=== PATIENT | male | born 1955 | race Caucasian/White ===

== ENCOUNTER → 2023-10-17 09:48 | Outpatient (REF) | payer MEDICARE, OTHER, SELFPAY | LOC: RCS 09:48 | PROVIDERS: ATTENDING PHYSICIAN Nurse Practitioner Primary Care | DX: R06.09 Other forms of dyspnea (principal); I25.10 Atherosclerotic heart disease of native coronary artery without angina pectoris; J44.9 Chronic obstructive pulmonary disease, unspecified; E11.42 Type 2 diabetes mellitus with diabetic polyneuropathy; I11.9 Hypertensive heart disease without heart failure; R07.9 Chest pain, unspecified | CPT/HCPCS: 93017; 93005; 93350; Q9957 ==

== ENCOUNTER → 2023-11-06 15:54 | Outpatient (REF) | payer MEDICARE, OTHER, SELFPAY | LOC: HWRCS 15:54 | PROVIDERS: ATTENDING PHYSICIAN Nurse Practitioner Primary Care | DX: R06.09 Other forms of dyspnea (principal); J44.9 Chronic obstructive pulmonary disease, unspecified; I11.9 Hypertensive heart disease without heart failure | CPT/HCPCS: 93306 ==

== ENCOUNTER → 2024-02-18 16:28 | Outpatient (REF) | payer MEDICARE, OTHER, SELFPAY | LOC: RAD 16:28 | PROVIDERS: ATTENDING PHYSICIAN Nurse Practitioner Family; FAMILY PHYSICIAN Internal Medicine Geriatric Medicine | DX: J44.1 Chronic obstructive pulmonary disease with (acute) exacerbation (principal) | CPT/HCPCS: 71046 ==

== ENCOUNTER 2024-03-07 17:12 | Inpatient (IN) | payer MEDICARE, OTHER, SELFPAY ==
[2024-03-07] VITALS (9 sets, daily range): BP systolic 113–157; BP diastolic 58–85; BMI 26.0; BMI 24.8
[2024-03-07 13:42] LABS: % Basophils 0.3 % (0-2); % Eosinophils 0.2 % (0-6); % Immature Granulocytes 0.5 % (0-0.5); % Lymphocytes 11.2 % (20.5-51.1); % Monocytes 10.6 % (1.7-9.3); % Neutrophils 77.2 % (42.2-75.2); Absolute Immature Granulocytes 0.1 10^3/uL (0-0.05); Absolute Lymphocytes 1.5 10^3/uL (1.2-3.4); Absolute Monocytes 1.4 10^3/uL (0.1-0.6); Hematocrit 41.2 % (39.0-52.0); Hemoglobin 14.2 g/dL (13.0-18.0); Mean Corp Hgb Conc. 34.5 g/dL (33.0-37.0); Mean Corpuscular Hgb 31.2 pg (27.0-31.0); Mean Corpuscular Volume 90.5 fL (80.0-94.0); Mean Platelet Volume 8.6 fL (7.4-10.4); Nucleated Red Blood Cells % 0 % (-); Platelet Count 228 10^3/uL (130-400); Red Blood Cell Count 4.55 10^6/uL (4.70-6.10); Red Cell Dist. Width 12.9 % (11.5-14.5)
[2024-03-07 13:55] LABS: ALT (SGPT) 15 U/L (0-50); AST (SGOT) 28 U/L (17-59); Albumin 4.4 g/dl (3.5-5.0); Alkaline Phosphatase 65 U/L (38-126); Blood Urea Nitrogen 13 mg/dl (9-20); Calcium 9.1 mg/dl (8.4-10.2); Carbon Dioxide 24 mmol/L (22-30); Chloride 91 mmol/L (98-107); Estimated Creatinine Clearance 58 ml/min; Glucose 120 mg/dl (70-99); Potassium 4.5 mmol/L (3.5-5.1); Sodium 127 mmol/L (135-145); Total Bilirubin 0.8 mg/dl (0.2-1.3); Total Protein 7.3 g/dl (6.3-8.2); eGFR 59.84
[2024-03-07 13:59] LABS: COVID-19 Antigen Negative (Negative)
[2024-03-07 14:04] LABS: NT-proBNP 254 pg/ml
[2024-03-07] MEDS: ATROVENT NEBULES 0.5 MG INH ×2 (14:47)
[2024-03-07] MEDS: DECADRON 10 MG IV (14:47)
[2024-03-07] MEDS: VENTOLIN NEBULES 7.5 MG INH (14:47)
--- NOTE | 2024-03-07 15:00 | EDRN ---
the pt pressed the call sharp and stated to this RN that he felt short of breath, Sp02 was 94%, this RN notified the provider and placed the pt on 2L NC, Sp02 came up to 98%, will continue to monitor the pt closely
--- NOTE | 2024-03-07 16:00 | ED.GENMED ---
History of Present Illness
General
Chief Complaint: Breathing Problem
Source: patient and spouse
Time Seen by Provider: 03/07/24 13:42
History of Present Illness
History of Present Illness:
68-year-old male longtime smoker who presents with shortness of breath. He recently had diagnosed with COVID and pneumonia a couple weeks ago. He presents with persistent and progressive dyspnea. No further fevers. Has been trying to cough
sputum up. No hemoptysis. Does continue to smoke
Past History
Past History
ED Past Medical History: COPD, GERD, NIDDM and Other (Hep C)
ED Past Surgical History: None
Social History
Tobacco: Smoker
Alcohol: Occasional
Personal:
Living: with family
Employment: Employed
Family History
Family History: Negative Diabetes, Hypertension, Early CAD, Asthma or Cancer
Phy Exam
Physical Exam
Physical Exam:
CONSTITUTIONAL Patient alert and oriented to person, place and time. Well-appearing. Vital signs reviewed.
HEAD atraumatic, normocephalic.
EYES eyelids normal to inspection, Pupils equally round and reactive to light, Extraocular muscles intact, Conjunctiva normal, Sclera normal.
NECK normal range of motion, Trachea midline, no jugular venous distention.
RESPIRATORY CHEST No respiratory distress noted, Chest expansion equal, wheezing bilaterally .
CARDIOVASCULAR regular and tachycardic.
ABDOMEN abdomen nontender, Bowel sounds normal. No distention.
BACK normal inspection, no obvious deformities
UPPER EXTREMITY range of motion normal, Motor strength normal, no cyanosis, no edema.
LOWER EXTREMITY range of motion normal, Motor strength normal, no cyanosis, no edema.
NEURO Speech normal, No focal motor deficits, John coma scale 15, Memory normal, Cranial Nerves intact to screening exam.
SKIN skin warm, dry, and normal in color.
PSYCHIATRIC patient oriented to person place and time, Normal affect.
Scores
Heart Failure Risk
Heart Failure Risk Score: Not Applicable
Course
Orders/Labs/Results
Orders:
Orders
03/07/24 Breakfast
1800 calorie (15 carb) Diabetic
At Your Request: Full Participation
Does patient need a safe tray?: No
03/07/24 13:22
CXR2 [CR Chest - 2 Views ] Urgent
Comment:
Reason For Exam: shortness of breath
03/07/24 13:34
COVID-19 Antigen Urgent
Source: Nasal Swab
Complete Blood Count/With Diff Urgent
Comprehensive Metabolic Panel Urgent
NT-proBNP Urgent
Serum Osmolality Urgent
Comment: SERUM OSMOLALITY ADDED ON BY FLOOR 4:30PM 03-07-24
Influenza A+B Rapid Molecular Urgent
NASREEN Source: Nasal Swab
Specimen Description:
03/07/24 14:06
Albuterol Sulfate [Ventolin Nebules] 7.5 mg INH R NOW STA
Dexamethasone Sod Phosphate [Decadron] 10 mg IV NOW STA
Ipratropium Nebs [Atrovent Nebules] 0.5 mg INH R NOW STA
03/07/24 14:07
Ipratropium Nebs [Atrovent Nebules] 0.5 mg INH R NOW STA
03/07/24 16:20
Acetaminophen [Tylenol] 1,000 mg PO NOW STA
03/07/24 16:26
Urinalysis Reflex To Culture Routine
03/07/24 16:27
Add On- LAB Routine
Tests Added?: serum osmolality
Urine Creatinine Routine
Urine Osmolality Random [Osmolality, Random Urine] Routine
Urine Potassium Routine
Urine Sodium Routine
03/07/24 16:28
Admit/Transfer Patient As Directed
Co-Sign Provider:
Level of Care: Inpatient admission
Assign to:: Telemetry
Physician / Group: sheu
Diagnosis: COPD exacerbation
Reason for Telemetry: Arrhythmia
Date to Stop Telemetry: 03/10/24
Time to Stop Telemetry: 11:00
Reason for Hospitalization: COPD exacerbation
Expected length of stay greater than two midnights?: Yes
ELOS- Estimated Length of Stay in days: 3
I certify the patient meets the requirements for IP care: Yes
03/07/24 16:29
Code Status As Directed
Resuscitation Status: Full Code
03/07/24 16:34
EKG [Electrocardiogram (*1)] Stat
Reason for Study: Tachycardia
03/07/24 16:47
CT Chest Pe Study Urgent
Comment:
Reason For Exam: sob
Legionella Urinary Antigen Routine
NASREEN Source: Urine
Specimen Description:
Sputum Culture [Respiratory Culture/Gram Stain] Routine
NASREEN Source: Sputum
Specimen Description:
Strep pneumoniae Antigen Routine
NASREEN Source: Urine
Specimen Description:
0.9% Sodium Chloride 1000 ml [Nss] 1,000 ml IV 60 mls/hr
03/07/24 16:53
CefTRIAXone [Rocephin] 1,000 mg IV NOW STA
03/07/24 16:54
Doxycycline Hyclate [Vibramycin] 200 mg 0.9% Sodium Chloride 250 ml [Nss] 250 ml IV NOW
03/07/24 17:09
Blood Culture Q30M
NASREEN Source: Blood/Venous
Specimen Description:
03/07/24 17:30
Blood Culture Q30M
NASREEN Source: Blood/Venous
Specimen Description:
03/07/24 19:36
Dexamethasone Sod Phosphate [Decadron] 4 mg IV Q8H
Dextrose 50%-Water [Dextrose 50% Syringe] 12.5 grams IV [id number] PRN
Enoxaparin Sodium [Lovenox] 40 mg SC QPM
Glucagon [GlucaGen] 1 mg IM PRN PRN
Insulin Aspart Corrective Low [Novolog Flexpen-Low Resistance] See Protocol SC AC
Levalbuterol [Xopenex 0.63 mg Inhalant Solution] 0.63 mg INH R Q6HPRN PRN
Lidocaine [Lidocaine 4% Patch] 1 patch TOPICAL DAILY
03/07/24 19:36
Activity As Directed
Activity Level: As Tolerated
Bedside Glucose Monitoring As Directed
Frequency: AC&HS
Additional Instructions:: Change to q6h if pt on TPN, tube feeding or not eating
Intake/ Output As Directed
Frequency: Per unit guidelines
Vital Signs As Directed
Frequency: Per unit guidelines
Xopenex Reason for Use As Directed
Reason for ordering Xopenex instead of Albuterol: tachycardia
Xopenex Reason for Use As Directed
Reason for ordering Xopenex instead of Albuterol: tachycardia
Copd Education [RESP] Routine
O2 Therapy [RESP] Routine
Titrate/Wean O2 to maintain O2 sat greater than (%): 92
Special Instructions: adjust, if necessary, to avoid hyperoxia in CO2 retainers.
Use High Flow O2 if necessary
DX Deep Vein Thrombosis Video Routine
03/07/24 20:00
Ipratropium Nebs [Atrovent Nebules] 0.5 mg INH R QID
Levalbuterol [Xopenex 0.63 mg Inhalant Solution] 0.63 mg INH R TID
03/07/24 22:00
Acetaminophen [Tylenol] 650 mg PO Q4HPRN PRN
Melatonin 5 mg PO HS
03/08/24 06:00
Basic Metabolic Panel IN AM
Complete Blood Count/With Diff IN AM
Glycohemoglobin (HgbA1c) IN AM
03/08/24 08:00
Aspirin Low Dose EC [Aspir Low (Enteric Coated)] 81 mg PO DAILY
Atorvastatin [Lipitor] 20 mg PO DAILY
Cetirizine HCl [Zyrtec] 10 mg PO DAILY
Losartan [Cozaar] 100 mg PO DAILY
Montelukast Sodium [Singulair] 10 mg PO DAILY
Omeprazole Suspension [Prilosec Baby Oral Suspension] 20 mg PO DAILY
03/08/24 18:00
CefTRIAXone [Rocephin] 1,000 mg IV Q24H
03/09/24 06:00
Basic Metabolic Panel IN AM
Complete Blood Count/With Diff IN AM
03/10/24 06:00
Basic Metabolic Panel IN AM
Complete Blood Count/With Diff IN AM
03/10/24 11:00
DC Protocol for Telemetry ONCE
03/11/24 06:00
Basic Metabolic Panel IN AM
Complete Blood Count/With Diff IN AM
03/12/24 06:00
Basic Metabolic Panel IN AM
Complete Blood Count/With Diff IN AM
Abnormal Lab Results
03/07/24
13:34
WBC 13.0 H 10^3/uL
(4.8-10.8)
RBC 4.55 L 10^6/uL
(4.70-6.10)
MCH 31.2 H pg
(27.0-31.0)
Abs Immat Gran (auto) 0.1 H 10^3/uL
(0-0.05)
Absolute Neuts (auto) 10.0 H 10^3/uL
(1.4-6.5)
Absolute Monos (auto) 1.4 H 10^3/uL
(0.1-0.6)
Neutrophils % 77.2 H %
(42.2-75.2)
Lymphocytes % 11.2 L %
(20.5-51.1)
Monocytes % 10.6 H %
(1.7-9.3)
Sodium 127 L mmol/L
(135-145)
Chloride 91 L mmol/L
(98-107)
Glucose 120 H mg/dl
(70-99)
Serum Osmolality 263 L mOsm/kg
(275-300)
03/07/24 13:34
03/07/24 13:34
Vital Signs
Initial and Last Documented VS:
Initial Vital Signs
Temp Pulse Resp BP Pulse Ox
98.8 F 121 30 127/79 92
03/07/24 13:05 03/07/24 13:05 03/07/24 13:05 03/07/24 13:05 03/07/24 13:05
Last Documented Vital Signs
Temp Pulse Resp BP Pulse Ox
98.8 F 117 28 153/74 91
03/07/24 13:05 03/07/24 19:30 03/07/24 19:30 03/07/24 17:53 03/07/24 18:30
MDM/Problems Addressed
MDM/Problems Addressed:
Acute exacerbation of COPD, hypoxia
*Radiology
Radiology exam reviewed: preliminary read by ED provider (no infiltrates)
*Pulse Oximetry
Patient hypoxic: yes
*[facility] Interpretation
Rate: tachycardiac
Interpretation: abnormal
Rhythm: sinus
*Critical Care Note
Total Time (30-74mins, 75-104mins- exclusive of procedures): 40 minutes
Data Reviewed
Review of Other/Old Records Reveals: Testing (Echocardiogram reviewed from October)
Source: patient and spouse
Prescriptions/Medications Considered But Not Given:
Considered antibiotics but afebrile, no pneumonia on x-ray
Patient Management
Discussion with other providers: Hospitalist
Escalation/DeEscalation of care consider admission/obs:
68-year-old male with COPD exacerbation. Steroids given and improved after hour-long neb but still hypoxic. Admit
ED Attending Note
-
Portions of this chart may have been created with voice recognition software.� Occasional wrong word or��sound alike� substitutions may have occurred due to the inherent limitations of voice recognition software.
Discharge Plan
Departure
Patient Disposition: Admit
Date of Disposition: 03/07/24
Time of Disposition: 16:00
Admit to: Telemetry
Presentation/result/management discussed w/ accepting MD/DO: Hospitalist
Discharge Problem:
Acute exacerbation of chronic obstructive pulmonary disease
Interventions
Interventions:
*Risk Screen - Suicide Last Done: 03/07/24 13:05
*General Assessment Last Done: 03/07/24 13:05
*Neglect/Abuse Screening Last Done: 03/07/24 13:05
ED- Fall Risk Assessment Last Done: 03/07/24 13:22
*ED COVID-19 Vaccine History Last Done: 03/07/24 13:22
*Nursing Disposition Last Done: 03/07/24 17:48
ED- Cardiac Assessment Last Done: 03/07/24 13:22
ED- Pulmonary Assessment Last Done: 03/07/24 13:22
Discharge Date and Time
Discharge Date/Time: 03/07/24 19:47
--- NOTE | 2024-03-07 16:06 | HPS.HSE ---
Addendum entered and electronically signed by Jonn Walsh MD 03/07/24 17:45:
I saw and examined the patient.
The PRINTING TECHNICIAN or PA's note was reviewed and I agree with the note.
Comment:
68 male history COPD GERD diabetes type 2 hepatitis C current smoker presents with progressive weakness generalized body aches back pain cough fever for the past few days. Further reports constipation. Denies dysuria abdomen pain palpitations.
Denies chest pain at rest. Reports pleuritic chest pain with cough productive sputum. Ambulatory without assist at baseline, patient has largely been sedentary for the past few days due to symptoms. Required 2 L oxygen supplementation. Tachy
possibly due to albuterol bronchodilator treatments. Blood pressure stable afebrile. Labs were notable for mild leukocytosis and mild hyponatremia. Chest x-ray noted no acute abnormalities. COVID flu negative. Wheezing mild though recently
completed bronchodilator treatments. Admitted for treatment COPD exacerbation versus possible pneumonia
Physical Exam
General: No pallor, cyanosis, or jaundice. Mild to moderate distress due to pain discomfort
HEENT: Throat clear. PERRLA Normocephalic atraumatic
NECK: Supple. No JVD Carotid Bruits
RESPIRATORY: Mild expiratory wheeze. On nasal cannula supplementation 2 L
CVS: S1, S2 normal. RRR. No murmur, rub or gallop.
ABDOMEN: Soft, non-tender. No distension. BS+/normal.
Musculoskeletal/EXTREMITIES: Upper paraspinal tenderness noted no peripheral cyanosis or edema.
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 No focal deficits.
#COPD exacerbation
#Current smoker
#Possible pneumonia
#Diabetes
#Hypertension
#Mild hyponatremia
Steroids and bronchodilator treatments Xopenex avoiding albuterol due to tachycardia
O2 supplementation as necessary
Mucinex Robitussin and Tessalon Perle as needed cough
Follow-up blood sputum cultures
Empiric ceftriaxone doxycycline check EKG if QT within normal limits switch doxycycline to azithromycin
Check strep pneumonia Legionella urinary antigens
Check CT PE study
Glycemic control
Blood pressure control
IV fluid normal saline Gentle hydration
Discussed with patient and his at bedside
I spent a total of 80 minutes with the patient or on the floor. More than 50% of this time involved counseling and coordination of care.
Original Note:
Family Physician
-
Family Physician: Wilian Wiggins
Chief Complaint
-
Cough
Short of breath
Generalized body ache
History of Present Illness
68-year-old with past medical history for COPD, GERD, type 2 diabetes, hepatitis presented to us with 3 days of productive cough with white sputum, sore throat, short of breath which is worse with activity and generalized body ache. Patient had a
fever of 101.9 at home. He is complaining of headache. Feels dizzy when he is up ad luis.. Patient also complained of chest pain with cough. Patient took Delsym and Tylenol and his rescue inhaler with some relief in his symptoms. Patient denied
any abdominal pain, nausea, vomiting, diarrhea. Patient denied dysuria hematuria.
Patient requiring 2 L of oxygen. Patient received nebulizer treatment and Decadron in ER. Admitting for further management
Medical History
Past Medical History
Past Medical History: Reports Other
Additional Past Medical History:
Hypertension
Type 2 diabetes
Hyperlipidemia
Hepatitis C
COPD
GERD
GERD history
Past Surgical History: Reports Other
Additional Past Surgical History:
Lump removed from back
Hernia repair
Right elbow surgery
Microdiscectomy
Tooth extraction
Social History
Tobacco: Smoker (10 to 15 cigarettes daily)
Alcohol: None
Drug: None
Personal:
Living: With Family
Family History
Family History: Not pertinent
Allergies / Home Medications
Allergies reflects when Allergies were last updated in [employer].
Home Medications with original date entered in [employer]
Allergy/Medication List:
Allergies
Allergy/AdvReac Type Severity Reaction Status Date / Time
No Known Allergies Allergy Verified 03/07/24 13:05
Home Medications
omeprazole 20 mg capsule,delayed release 20 mg PO DAILY 02/04/12
fluticasone propionate 50 mcg/actuation nasal spray,suspension 2 spray intranasal DAILY 01/15/18
lisinopril 20 mg tablet 20 mg PO DAILY 01/15/18
montelukast 10 mg tablet 10 mg PO DAILY 01/15/18
sitagliptin phosphate 50 mg-metformin 1,000 mg tablet (Janumet) 1 ea PO BID 01/15/18
tiotropium bromide 2.5 mcg/actuation mist for inhalation (Spiriva Respimat) 2 puff inhalation DAILY 01/15/18
Review of Systems
-
Constitutional: Reports Fatigue
EENT: Reports Sore Throat
Respiratory: Reports No Symptoms, Cough and Trouble Breathing
Cardiac: Reports No Symptoms and Chest Pain
Abdomen/GI: Reports No Symptoms
: Reports No Symptoms
Musculoskeletal: Reports No Symptoms
Skin: Reports No Symptoms
Neurological: Reports No Symptoms
Endocrine: Reports No Symptoms
Hematologic/Lymphatic: Reports No Symptoms
Psych: Reports No Symptoms
Physical Exam
Vital Signs
Vital Signs
Temp Pulse Resp BP Pulse Ox
98.8 F 122 22 127/79 92
03/07/24 13:05 03/07/24 13:30 03/07/24 13:30 03/07/24 13:05 03/07/24 13:30
Physical Exam
General: Well Developed, Well Nourished and No Apparent Distress
HEENT: NormoCephalic, Moist mucous membranes and Atraumatic
Respiratory: Rales
Cardiac: S1/S2 and Regular Rhythm; No Murmur or Rub
GI: Soft, Non Tender, Non Distended and Normal Bowel Sounds; No Organomegaly
Rectal: Deferred by Provider
Musculoskeletal: No Clubbing, No Cyanosis and No Edema
Skin: No Rash
Neuro: AO x 3 and Nonfocal/grossly intact
Psych: Calm
Laboratory Results
-
03/07/24 13:34
03/07/24 13:34
Laboratory Results
Total Bilirubin 0.8 mg/dl (0.2-1.3) 03/07/24 13:34
AST 28 U/L (17-59) 03/07/24 13:34
ALT 15 U/L (0-50) 03/07/24 13:34
Alkaline Phosphatase 65 U/L (38-126) 03/07/24 13:34
Data Reviewed
-
Diagnostic Radiology: Report Reviewed by me
Lab Data: Labs Reviewed by me
Impression/Plan
-
# Acute hypoxic respiratory failure likely from COPD exacerbation
-COVID-negative
-Chest x-ray with no acute cardiopulmonary process
-Negative for influenza AMB
-IV Decadron 4 Mg every 8 hours
-Xopenex and Atrovent
-Singulair continued
-Continue supplemental oxygen to keep sat greater than 92
-Wean as tolerated
-obtain CT PE
# Leukocytosis likely stress reaction
-will obtain blood cutlures, strep pneumoniae, urine legionella,sputum culture
-will add prophylactically ceftriaxone and zithro pending QTC eval
-WBC 13.0, afebrile in Er
-stated fever at home.
-Obtain urinalysis
#tachycardia likely from above and dehydration
-normal saline 60cc/hr
# Acute hyponatremia likely dehydration
-Sodium 127
-Obtain urine lytes
-Normal saline x 1 bag
-Monitor BMP in a.m.
# Essential hypertension
-losartan continued with hold parameters
# GERD
-PPI continued
# Type 2 diabetes
-metformin and repaglinide held
-Sliding scale
-Lantus 10u at hs
-Carb controlled diet
#nicotine dependence
-smokes 10-15 cigarettes daily
-refused nicotine patch
#generalized pain/chronic back pain
-lidocaine and Tylenol prn for pain
# DVT prophylaxis
-Lovenox subcu
#CODE STATUS
-Full code
[2024-03-07 17:33] LABS: Osmolality Serum 263 mOsm/kg (275-300)
[2024-03-07] MEDS: ROCEPHIN 1000 MG IV (17:58)
[2024-03-07] MEDS: TYLENOL 1000 MG PO (17:58)
[2024-03-07] MEDS: XOPENEX 0.63 MG INHALANT SOLUTION 0.630000000000000004 MG INH (20:11)
[2024-03-07] MEDS: NSS 1000 IV (20:32)
[2024-03-07] MEDS: MUCINEX 600 MG PO (20:33)
[2024-03-07] MEDS: LOVENOX 40 MG SC (20:33)
[2024-03-07] MEDS: VIBRAMYCIN 270 MG IV (20:33)
[2024-03-07] MEDS: LIDOCAINE 4% PATCH 1 PATCH TOPICAL (20:34)
[2024-03-07 20:54] LABS: Troponin I < 0.012 ng/ml
[2024-03-07 21:16] LABS: Lactic Acid 0.9 mmol/L (0.7-2.0)
--- NOTE | 2024-03-07 22:00 | TRANSFER ---
Pt admitted from ED to room 415-2. Pt walked from stretcher to bed with no assistance. AAOx3. Pt on 2 liters O2 95%. Pt denies SOB at current time. [place] to unit. Call sharp within reach
[2024-03-07] MEDS: DECADRON 4 MG IV (22:14)
[2024-03-07] MEDS: MELATONIN 5 MG PO (22:14)
[2024-03-07] MEDS: LANTUS 0.100000000000000006 UNITS SC (22:18)
[2024-03-07 22:20] LABS: Glucose - Point of Care 182 mg/dl (70-99)
[2024-03-07] MEDS: NOVOLOG FLEXPEN-LOW RESISTANCE SC (22:25)
[2024-03-07] MEDS: TYLENOL 650 MG PO (23:12)
[2024-03-08 03:00] VITALS: BP 144/86
[2024-03-08] MEDS: VIBRAMYCIN 260 MG IV ×2 (03:36→17:40)
[2024-03-08 04:16] LABS: Urine Albumin 1+ (Neg - Trace); Urine Bilirubin Negative (Negative); Urine Character Clear (Clear); Urine Color Yellow; Urine Glucose Negative (Negative); Urine Ketone Trace (Negative); Urine Leukocyte Negative (Negative); Urine Nitrite Negative (Negative); Urine Occult Blood Trace (Negative); Urine Urobilinogen Negative (Neg - 1+)
[2024-03-08 04:18] LABS: Osmolality Urine 304 mOsm/kg (300-900)
[2024-03-08 04:32] LABS: Urine Red Blood Cell None Seen /HPF (0-2); Urine White Cell 0-2 /HPF (0-5)
[2024-03-08 04:40] LABS: Urine Potassium 33.3 mmol/L (30-90); Urine Sodium 21 mmol/L (30-90)
[2024-03-08] MEDS: DECADRON 4 MG IV ×3 (05:13→21:07)
[2024-03-08 07:00] VITALS: BP 123/73
[2024-03-08 07:03] LABS: Glucose - Point of Care 240 mg/dl (70-99)
--- NOTE | 2024-03-08 07:10 | W.PN.HOSP.TC ---
Today's Communication/Plan
-
cont abx
fluid restrict
cough medications prn
wean O2 supplementation as tolerated
nicotine supplementation
follow cultures
Assessment / Plan
Assessment / Plan
Physical Exam
General: No pallor, cyanosis, or jaundice. No acute distress. Appears comfortable at this time
HEENT: Throat clear. PERRLA Normocephalic atraumatic
NECK: Supple. No JVD Carotid Bruits
RESPIRATORY: Mild expiratory wheeze. On nasal cannula supplementation 2 L
CVS: S1, S2 normal. RRR. No murmur, rub or gallop.
ABDOMEN: Soft, non-tender. No distension. BS+/normal.
Musculoskeletal/EXTREMITIES: Upper paraspinal tenderness noted no peripheral cyanosis or edema.
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 No focal deficits.
68 male history COPD GERD diabetes type 2 hepatitis C current smoker presents with progressive weakness generalized body aches back pain cough fever for the past few days. Further reports constipation. Denies dysuria abdomen pain palpitations.
Denies chest pain at rest. Reports pleuritic chest pain with cough productive sputum. Ambulatory without assist at baseline, patient has largely been sedentary for the past few days due to symptoms. Required 2 L oxygen supplementation. Tachy
possibly due to albuterol bronchodilator treatments. Blood pressure stable afebrile. Labs were notable for mild leukocytosis and mild hyponatremia. Chest x-ray noted no acute abnormalities. COVID flu negative. Wheezing mild though recently
completed bronchodilator treatments. Admitted for treatment COPD exacerbation versus likely pneumonia
#Sepsis Pneumonia (white count elevation fever consolidation noted on CT)
# Acute hypoxic respiratory failure likely from COPD exacerbation
#Cough
-COVID Flu Neg
-Chest x-ray with no acute cardiopulmonary process
-CT chest however appreciated right consolidation vs mass vs adenopathy (recommended outpt follow up with patient's advertising sales agent Dr Cordova for repeat CT vs PET scan). No PE noted.
-IV Decadron 4 Mg every 8 hours
-scheduled Xopenex prn Xopenex and Atrovent (avoiding albuterol d/t tachycardia)
-Singulair continued
-Continue supplemental oxygen to keep sat greater than 92
-Wean as tolerated
-strep pneumoniae, urine legionella neg
-follow blood,sputum cultures
-cont Ceftriaxone, Doxycycline discontinued in favor of Azithromycin (QTc wnl)
-scheduled mucinex, prn robitussin tessalon perle
# Acute hyponatremia 120s
-fluid restriction
# Essential hypertension
-losartan continued with hold parameters
# GERD
-PPI continued
# Type 2 diabetes
-hold metformin and repaglinide
-medium Sliding scale
-Lantus 10u at hs
-Carb controlled diet
#nicotine dependence
-smokes 10-15 cigarettes daily
-nicotine patch
-nicotine lozenge prn
#generalized pain/chronic back pain
-lidocaine and Tylenol prn for pain
# DVT prophylaxis
-Lovenox subcu
#CODE STATUS
-Full code
I spent a total of 58 minutes with the patient or on the floor. More than 50% of this time involved counseling and coordination of care.
Anticipated Discharge: 24 - 48 hours
Subjective/Interval History
-
Date of Service: March 08, 2024
Seen and examined at bedside in no acute distress ambulating without issues. Reports significant improvement in overall symptoms though not resolved. Remains dependent on low dose oxygen supplementation 2L (baseline room air).
Objective Data
-
Labs:
Laboratory Results
03/08/24
06:00
WBC Pending
Hgb Pending
Hct Pending
Plt Count Pending
Sodium Pending
Potassium Pending
Chloride Pending
Carbon Dioxide Pending
BUN Pending
Creatinine Pending
Glucose Pending
Calcium Pending
Vital Signs:
Vital Signs
Temp Pulse Resp BP Pulse Ox
98.5 F 102 20 144/86 95
03/08/24 03:00 03/08/24 03:00 03/08/24 03:00 03/08/24 03:00 03/08/24 03:00
I&O
03/07/24 03/08/24 03/09/24
06:59 06:59 06:59
Intake Total 480 / 480
Output Total 385 / 385
Balance 95 / 95
[2024-03-08] MEDS: XOPENEX 0.63 MG INHALANT SOLUTION 0.630000000000000004 MG INH ×3 (08:02→19:45)
[2024-03-08 08:42] LABS: % Basophils 0.1 % (0-2); % Immature Granulocytes 1.4 % (0-0.5); % Monocytes 3.4 % (1.7-9.3); % Neutrophils 91.1 % (42.2-75.2); Absolute Immature Granulocytes 0.2 10^3/uL (0-0.05); Absolute Lymphocytes 0.4 10^3/uL (1.2-3.4); Absolute Monocytes 0.4 10^3/uL (0.1-0.6); Absolute Neutrophils 9.8 10^3/uL (1.4-6.5); Hematocrit 36.6 % (39.0-52.0); Hemoglobin 12.3 g/dL (13.0-18.0); Mean Corp Hgb Conc. 33.6 g/dL (33.0-37.0); Mean Corpuscular Hgb 30.8 pg (27.0-31.0); Mean Corpuscular Volume 91.7 fL (80.0-94.0); Nucleated Red Blood Cells % 0 % (-); Platelet Count 186 10^3/uL (130-400); Red Blood Cell Count 3.99 10^6/uL (4.70-6.10); Red Cell Dist. Width 12.7 % (11.5-14.5); White Blood Cell Count 10.8 10^3/uL (4.8-10.8)
[2024-03-08] MEDS: ASPIR LOW (ENTERIC COATED) 81 MG PO (08:46)
[2024-03-08] MEDS: LIDOCAINE 4% PATCH TOPICAL (08:46)
[2024-03-08] MEDS: LIPITOR 20 MG PO (08:46)
[2024-03-08] MEDS: PROTONIX 40 MG PO (08:46)
[2024-03-08] MEDS: SINGULAIR 10 MG PO (08:46)
[2024-03-08] MEDS: NOVOLOG FLEXPEN-LOW RESISTANCE 2 UNITS SC ×2 (08:46→17:40)
[2024-03-08] MEDS: MUCINEX 600 MG PO ×2 (08:46→21:07)
[2024-03-08] MEDS: COZAAR 100 MG PO (08:47)
[2024-03-08] MEDS: ZYRTEC 10 MG PO (08:50)
[2024-03-08 09:02] LABS: Blood Urea Nitrogen 14 mg/dl (9-20); Calcium 8.2 mg/dl (8.4-10.2); Carbon Dioxide 23 mmol/L (22-30); Chloride 91 mmol/L (98-107); Estimated Creatinine Clearance 85 ml/min; Glucose 209 mg/dl (70-99); Potassium 4.3 mmol/L (3.5-5.1); Sodium 124 mmol/L (135-145); eGFR > 60.00
[2024-03-08 09:49] LABS: Glycohemoglobin (HgbA1c) 8.4 % (4.0-5.6)
[2024-03-08 11:00] VITALS: BP 127/76
[2024-03-08 11:38] LABS: Glucose - Point of Care 256 mg/dl (70-99)
--- NOTE | 2024-03-08 12:03 | CM ---
room service manager reviewed patient's chart and met with patient and patient lives with spouse in multilevel home, patient is independent with adl's and ambulation, no dme, patient is currently requiring oxygen, patient did not use oxygen at home.
Pharmacy: [facility]
PCP: Dr. Wiggins
Plan; Home when stable.
[2024-03-08] MEDS: NOVOLOG FLEXPEN-LOW RESISTANCE 3 UNITS SC (13:19)
[2024-03-08] MEDS: ZITHROMAX INFUSION 250 IV (13:20)
[2024-03-08] MEDS: NSS 1000 IV (13:21)
[2024-03-08] MEDS: NICODERM TRANSDERMAL 21 MG TRANSDERM (14:43)
[2024-03-08] MEDS: ROBITUSSIN AC 5 ML PO ×2 (14:44→21:34)
[2024-03-08 15:00] VITALS: BP 130/111
[2024-03-08 16:41] LABS: Glucose - Point of Care 200 mg/dl (70-99)
[2024-03-08] MEDS: ROCEPHIN 1000 MG IV (17:40)
[2024-03-08] MEDS: STERILE WATER FOR INJECTION 10 ML IV (17:40)
[2024-03-08] MEDS: LOVENOX 40 MG SC (17:40)
[2024-03-08 19:00] VITALS: BP 126/62
[2024-03-08] MEDS: TESSALON PERLES 200 MG PO (19:05)
[2024-03-08] MEDS: FLUSH (NSS) 1 FLUSH IV (21:08)
[2024-03-08] MEDS: MELATONIN 5 MG PO (21:11)
[2024-03-08] MEDS: TYLENOL 650 MG PO (21:22)
[2024-03-08 21:23] LABS: Glucose - Point of Care 277 mg/dl (70-99)
[2024-03-08] MEDS: LANTUS 0.100000000000000006 UNITS SC (21:34)
[2024-03-08 23:00] VITALS: BP 135/72
[2024-03-09 03:05] VITALS: BP 126/81
[2024-03-09] MEDS: VIBRAMYCIN 260 MG IV ×2 (03:25→16:15)
[2024-03-09] MEDS: ROBITUSSIN AC 5 ML PO ×3 (03:31→20:44)
[2024-03-09] MEDS: ANESTHETIC LOZENGE 1 LOZENGE PO (03:38)
[2024-03-09] MEDS: DECADRON 4 MG IV ×3 (05:44→16:54)
--- NOTE | 2024-03-09 06:31 | W.PN.HOSP.TC ---
Today's Communication/Plan
-
cont abx
fluid restriction relaxed w/ improvement in Na
cough medications scheduled and prn
wean O2 supplementation as tolerated
nicotine supplementation
follow cultures
blood pressure glycemic control
steroids discontinued d/t anxiousness/agitation lungs clear to auscultation, monitor off
Assessment / Plan
Assessment / Plan
Physical Exam
General: No pallor, cyanosis, or jaundice. No acute distress. Appears comfortable at this time
HEENT: Throat clear. PERRLA Normocephalic atraumatic
NECK: Supple. No JVD Carotid Bruits
RESPIRATORY: Clear to auscultation. On nasal cannula supplementation 2 L
CVS: S1, S2 normal. RRR. No murmur, rub or gallop.
ABDOMEN: Soft, non-tender. No distension. BS+/normal.
Musculoskeletal/EXTREMITIES: Upper paraspinal tenderness noted no peripheral cyanosis or edema.
HEALTH AND SAFETY COORDINATOR: AOx3. No focal deficits.
68 male history COPD GERD diabetes type 2 hepatitis C current smoker presents with progressive weakness generalized body aches back pain cough fever for the past few days. Further reports constipation. Denies dysuria abdomen pain palpitations.
Denies chest pain at rest. Reports pleuritic chest pain with cough productive sputum. Ambulatory without assist at baseline, patient has largely been sedentary for the past few days due to symptoms. Required 2 L oxygen supplementation. Tachy
possibly due to albuterol bronchodilator treatments. Blood pressure stable afebrile. Labs were notable for mild leukocytosis and mild hyponatremia. Chest x-ray noted no acute abnormalities. COVID flu negative. Wheezing mild though recently
completed bronchodilator treatments. Admitted for treatment COPD exacerbation versus likely pneumonia
#Sepsis Pneumonia (white count elevation fever consolidation noted on CT)
# Acute hypoxic respiratory failure likely from COPD exacerbation
#Cough
-COVID Flu Neg
-Chest x-ray with no acute cardiopulmonary process
-CT chest however appreciated right consolidation vs mass vs adenopathy (recommended outpt follow up with patient's safety admin assistant Dr Cordova for repeat CT vs PET scan). No PE noted.
-IV Decadron 4 Mg every 8 hours since discontinued d/t anxiousness/agitation, lungs clear to auscultation, monitor off steroids for now
-scheduled Xopenex prn Xopenex and Atrovent (avoiding albuterol d/t tachycardia)
-Singulair continued
-Continue supplemental oxygen to keep sat greater than 92
-Wean as tolerated
-strep pneumoniae, urine legionella neg
-follow blood,sputum cultures
-cont Ceftriaxone, Doxycycline discontinued in favor of Azithromycin (QTc wnl) 3 day course
-scheduled mucinex, prn robitussin tesmeleon perle
Anxiousness/agitated
-possibly d/t steroids since discontinued
-prn ativan PO 0.25 mg
# Acute hyponatremia 120s
-fluid restriction, Na since improved 130s,
-fluid restriction relaxed from 48 oz to 60 oz
# Essential hypertension
-losartan continued with hold parameters
# GERD
-PPI continued
# Type 2 diabetes
-hold metformin and repaglinide
-medium Sliding scale
-Lantus 10u at hs
-Carb controlled diet
#nicotine dependence
-smokes 10-15 cigarettes daily
-nicotine patch
-nicotine lozenge prn
#generalized pain/chronic back pain
-lidocaine and Tylenol prn for pain
# DVT prophylaxis
-Lovenox subcu
#CODE STATUS
-Full code
Discussed with patient and patient's sister Shauna at bedside
I spent a total of 58 minutes with the patient or on the floor. More than 50% of this time involved counseling and coordination of care.
Anticipated Discharge: 24 - 48 hours
Subjective/Interval History
-
Date of Service: March 09, 2024
Patient continues to report excessive coughing. Later in day patient was noted to be more anxious/agitated (notably after second dose of steroids on TID schedule).
Objective Data
-
Labs:
Laboratory Results
03/09/24
06:00
WBC Pending
Hgb Pending
Hct Pending
Plt Count Pending
Sodium Pending
Potassium Pending
Chloride Pending
Carbon Dioxide Pending
BUN Pending
Creatinine Pending
Glucose Pending
Calcium Pending
Vital Signs:
Vital Signs
Temp Pulse Resp BP Pulse Ox
97.7 F 117 22 126/81 96
03/09/24 03:05 03/09/24 03:05 03/09/24 03:05 03/09/24 03:05 03/09/24 03:05
I&O
03/07/24 03/08/24 03/09/24
06:59 06:59 06:59
Intake Total 480 / 480 1740 / 1740
Output Total 385 / 385 1320 / 1320
Balance 95 / 95 420 / 420
[2024-03-09 07:00] VITALS: BP 161/85
[2024-03-09 07:11] LABS: Glucose - Point of Care 163 mg/dl (70-99)
[2024-03-09] MEDS: XOPENEX 0.63 MG INHALANT SOLUTION 0.630000000000000004 MG INH ×3 (07:39→19:51)
[2024-03-09 07:43] LABS: Blood Urea Nitrogen 16 mg/dl (9-20); Calcium 8.7 mg/dl (8.4-10.2); Carbon Dioxide 25 mmol/L (22-30); Chloride 97 mmol/L (98-107); Estimated Creatinine Clearance 85 ml/min; Glucose 167 mg/dl (70-99); Magnesium 1.8 mg/dl (1.6-2.3); Phosphorus 2.4 mg/dl (2.5-4.5); Potassium 4.5 mmol/L (3.5-5.1); Sodium 132 mmol/L (135-145); eGFR > 60.00
[2024-03-09 07:50] LABS: % Basophils 0.1 % (0-2); % Immature Granulocytes 0.6 % (0-0.5); % Lymphocytes 4.5 % (20.5-51.1); % Monocytes 6.3 % (1.7-9.3); % Neutrophils 88.5 % (42.2-75.2); Absolute Immature Granulocytes 0.1 10^3/uL (0-0.05); Absolute Lymphocytes 0.5 10^3/uL (1.2-3.4); Absolute Monocytes 0.7 10^3/uL (0.1-0.6); Absolute Neutrophils 10.2 10^3/uL (1.4-6.5); Hematocrit 35.8 % (39.0-52.0); Hemoglobin 12.3 g/dL (13.0-18.0); Mean Corp Hgb Conc. 34.4 g/dL (33.0-37.0); Mean Corpuscular Hgb 30.8 pg (27.0-31.0); Mean Corpuscular Volume 89.7 fL (80.0-94.0); Nucleated Red Blood Cells % 0 % (-); Platelet Count 241 10^3/uL (130-400); Red Blood Cell Count 3.99 10^6/uL (4.70-6.10); Red Cell Dist. Width 12.8 % (11.5-14.5); White Blood Cell Count 11.5 10^3/uL (4.8-10.8)
[2024-03-09] MEDS: NOVOLOG FLEXPEN-MODERATE RESISTANCE 1 UNITS SC ×2 (08:19→17:09)
[2024-03-09] MEDS: LIDOCAINE 4% PATCH 1 PATCH TOPICAL (08:20)
[2024-03-09] MEDS: ASPIR LOW (ENTERIC COATED) 81 MG PO (08:20)
[2024-03-09] MEDS: PROTONIX 40 MG PO (08:21)
[2024-03-09] MEDS: LIPITOR 20 MG PO (08:21)
[2024-03-09] MEDS: SINGULAIR PO (08:21)
[2024-03-09] MEDS: MUCINEX 600 MG PO (08:21)
[2024-03-09] MEDS: ZYRTEC PO (08:22)
[2024-03-09] MEDS: COZAAR 100 MG PO (08:23)
[2024-03-09] MEDS: TYLENOL 650 MG PO ×2 (08:37→16:15)
[2024-03-09] MEDS: NICODERM TRANSDERMAL 21 MG TRANSDERM (08:44)
[2024-03-09] MEDS: TESSALON PERLES 200 MG PO ×3 (09:03→20:44)
[2024-03-09 11:00] VITALS: BP 133/66
[2024-03-09] MEDS: ZITHROMAX INFUSION 250 IV (11:37)
[2024-03-09 12:08] LABS: Glucose - Point of Care 261 mg/dl (70-99)
[2024-03-09] MEDS: NOVOLOG FLEXPEN-MODERATE RESISTANCE 5 UNITS SC (13:04)
[2024-03-09 15:00] VITALS: BP 162/82
[2024-03-09] MEDS: ATIVAN 0.25 MG PO ×2 (16:54→22:01)
[2024-03-09] MEDS: ROCEPHIN 1000 MG IV (16:54)
[2024-03-09] MEDS: STERILE WATER FOR INJECTION 10 ML IV (16:54)
[2024-03-09] MEDS: LOVENOX 40 MG SC (16:55)
[2024-03-09 16:56] LABS: Glucose - Point of Care 169 mg/dl (70-99)
[2024-03-09 19:48] VITALS: BP 135/77
[2024-03-09] MEDS: MUCINEX PO ×2 (20:43→20:52)
[2024-03-09 21:29] LABS: Glucose - Point of Care 207 mg/dl (70-99)
[2024-03-09] MEDS: LANTUS 0.100000000000000006 UNITS SC (21:58)
[2024-03-09] MEDS: MELATONIN 5 MG PO (21:59)
[2024-03-09 23:22] VITALS: BP 145/77
[2024-03-10 03:28] VITALS: BP 148/86
[2024-03-10] MEDS: TYLENOL 650 MG PO ×3 (03:28→21:57)
[2024-03-10 07:15] LABS: Glucose - Point of Care 104 mg/dl (70-99)
[2024-03-10 07:31] LABS: % Basophils 0.1 % (0-2); % Immature Granulocytes 0.7 % (0-0.5); % Lymphocytes 10.8 % (20.5-51.1); % Monocytes 9.1 % (1.7-9.3); % Neutrophils 79.3 % (42.2-75.2); Absolute Immature Granulocytes 0.1 10^3/uL (0-0.05); Absolute Lymphocytes 1.1 10^3/uL (1.2-3.4); Absolute Monocytes 0.9 10^3/uL (0.1-0.6); Hematocrit 36.6 % (39.0-52.0); Hemoglobin 12.6 g/dL (13.0-18.0); Mean Corp Hgb Conc. 34.4 g/dL (33.0-37.0); Mean Corpuscular Hgb 30.8 pg (27.0-31.0); Mean Corpuscular Volume 89.5 fL (80.0-94.0); Mean Platelet Volume 8.7 fL (7.4-10.4); Nucleated Red Blood Cells % 0 % (-); Platelet Count 247 10^3/uL (130-400); Red Blood Cell Count 4.09 10^6/uL (4.70-6.10)
[2024-03-10] MEDS: NOVOLOG FLEXPEN-MODERATE RESISTANCE SC ×3 (07:33→16:13)
[2024-03-10] MEDS: XOPENEX 0.63 MG INHALANT SOLUTION 0.630000000000000004 MG INH ×3 (07:41→19:20)
[2024-03-10 08:07] VITALS: BP 149/87
[2024-03-10 08:17] LABS: Blood Urea Nitrogen 14 mg/dl (9-20); Calcium 8.4 mg/dl (8.4-10.2); Carbon Dioxide 29 mmol/L (22-30); Chloride 92 mmol/L (98-107); Estimated Creatinine Clearance 85 ml/min; Glucose 95 mg/dl (70-99); Magnesium 1.8 mg/dl (1.6-2.3); Phosphorus 3.1 mg/dl (2.5-4.5); Potassium 4.1 mmol/L (3.5-5.1); Sodium 129 mmol/L (135-145); eGFR > 60.00
[2024-03-10] MEDS: SINGULAIR 10 MG PO (08:20)
[2024-03-10] MEDS: LIPITOR 20 MG PO (08:21)
[2024-03-10] MEDS: MUCINEX 600 MG PO (08:21)
[2024-03-10] MEDS: COZAAR 100 MG PO (08:21)
[2024-03-10] MEDS: PROTONIX 40 MG PO (08:21)
[2024-03-10] MEDS: ASPIR LOW (ENTERIC COATED) 81 MG PO (08:21)
[2024-03-10] MEDS: ZYRTEC 10 MG PO (08:21)
[2024-03-10] MEDS: NICODERM TRANSDERMAL 21 MG TRANSDERM (08:22)
[2024-03-10] MEDS: LIDOCAINE 4% PATCH TOPICAL (08:23)
--- NOTE | 2024-03-10 11:05 | CM ---
Patient seen bedside, reports no needs to CM at this time. Patient remains on O2, not on home O2. CM will continue to follow for all discharge planning needs.
Plan; watch for home O2 needs upon discharge.
[2024-03-10 11:37] VITALS: BP 164/96
[2024-03-10 12:01] LABS: Glucose - Point of Care 108 mg/dl (70-99)
--- NOTE | 2024-03-10 12:22 | W.PN.HOSP.TC ---
Today's Communication/Plan
-
pulm input
iv abx
wena o2
Assessment / Plan
Assessment / Plan
Physical Exam
General: No pallor, cyanosis, or jaundice. No acute distress. Appears comfortable at this time
HEENT: Throat clear. PERRLA Normocephalic atraumatic
NECK: Supple. No JVD Carotid Bruits
RESPIRATORY: +exp wheezing bilaterally, On nasal cannula supplementation 2 L
CVS: S1, S2 normal. RRR. No murmur, rub or gallop.
ABDOMEN: Soft, non-tender. No distension. BS+/normal.
Musculoskeletal/EXTREMITIES: Upper paraspinal tenderness noted no peripheral cyanosis or edema.
UTILIZATION REVIEW NURSE: AOx3. No focal deficits.
68 male history COPD GERD diabetes type 2 hepatitis C current smoker presents with progressive weakness generalized body aches back pain cough fever for the past few days. Further reports constipation. Denies dysuria abdomen pain palpitations.
Denies chest pain at rest. Reports pleuritic chest pain with cough productive sputum. Ambulatory without assist at baseline, patient has largely been sedentary for the past few days due to symptoms. Required 2 L oxygen supplementation. Tachy
possibly due to albuterol bronchodilator treatments. Blood pressure stable afebrile. Labs were notable for mild leukocytosis and mild hyponatremia. Chest x-ray noted no acute abnormalities. COVID flu negative. Wheezing mild though recently
completed bronchodilator treatments. Admitted for treatment COPD exacerbation versus likely pneumonia
#Sepsis Pneumonia (white count elevation fever consolidation noted on CT)
# Acute hypoxic respiratory failure likely from COPD exacerbation
#Cough
-COVID Flu Neg
-Chest x-ray with no acute cardiopulmonary process
-CT chest however appreciated right consolidation vs mass vs adenopathy (recommended outpt follow up with patient's patent chemist Dr Cordova for repeat CT vs PET scan). No PE noted.
-IV Decadron 4 Mg every 8 hours since discontinued d/t anxiousness/agitation. Pt does have +exp wheezing b/l. Would benefit from steroids low dose.
-scheduled Xopenex prn Xopenex and Atrovent (avoiding albuterol d/t tachycardia)
-Singulair continued
-Continue supplemental oxygen to keep sat greater than 92
-Wean as tolerated
-strep pneumoniae, urine legionella neg
-follow blood,sputum cultures
-cont Ceftriaxone, Doxycycline discontinued in favor of Azithromycin (QTc wnl) 3 day course
-scheduled mucinex, prn robitussin gabi mirzae
-Will ask Pulm for input.
Anxiousness/agitated
-possibly d/t steroids since discontinued
-prn ativan PO 0.25 mg
# Acute hyponatremia 120s
-fluid restriction, Na since improved
-fluid restriction relaxed from 48 oz to 60 oz
# Essential hypertension
-losartan continued with hold parameters
# GERD
-PPI continued
# Type 2 diabetes
-hold metformin and repaglinide
-medium Sliding scale
-Lantus 10u at hs
-Carb controlled diet
#nicotine dependence
-smokes 10-15 cigarettes daily
-nicotine patch
-nicotine lozenge prn
#generalized pain/chronic back pain
-lidocaine and Tylenol prn for pain
# DVT prophylaxis
-Lovenox subcu
#CODE STATUS
-Full code
Anticipated Discharge: > 48 hours
Subjective/Interval History
-
Date of Service: March 10, 2024
states of severe coughing fit episodes
mild improvement in sob
walking around in room with oxygen
Objective Data
-
Labs:
Laboratory Results
03/10/24
07:07
WBC 10.0
Hgb 12.6 L
Hct 36.6 L
Plt Count 247
Sodium 129 L
Potassium 4.1
Chloride 92 L
Carbon Dioxide 29
BUN 14
Creatinine 0.9
Glucose 95
Calcium 8.4
Vital Signs:
Vital Signs
Temp Pulse Resp BP Pulse Ox
98.6 F 118 16 164/96 97
03/10/24 11:37 03/10/24 11:37 03/10/24 11:37 03/10/24 11:37 03/10/24 11:37
I&O
03/09/24 03/10/24 03/11/24
06:59 06:59 06:59
Intake Total 1740 / 1740 1440 / 1440
Output Total 1320 / 1320
Balance 420 / 420 1440 / 1440
Data Reviewed
-
Total Time Spent with Patient (in minutes): 55
--- NOTE | 2024-03-10 13:08 | CON.PUL ---
Consultation
Consultation Request
Date/Time Consultation Requested: 03/10/2024 - 1119
Date/Time Consultation Performed: 03/10/2024 - 1250
Requesting Provider: Dr. Cheney
Performing Provider: Dr. Talbot
Reason for Consultation: SOB
Medical History
-
Chief Complaint: Shortness of breath + congestion/cough
History of Present Illness:
68-year-old male tobacco smoker with a past medical history of COPD, HCV s/p treatment with SVR, GERD, history of sinus infections, DM type II and hypertension presents with worsening cough and congestion. He was initially afebrile in the ER to
98.8 �F, breathing at 30 breaths/min, tachycardic to 121 and saturating 92% on room air, with BP 127/79. Labs showed leukocytosis to 13, hyponatremia 127, hypoosmolarity to 263, COVID antigen negative, flu A/B- and blood cultures were collected.
CXR obtained showing fullness at the right middle lobe, and CTA chest was negative for any acute PE with centrilobular/paraseptal emphysema and a right middle lobe/right perihilar consolidative opacity. He was given nebulized bronchodilators plus
Decadron in the ER and admitted to the hospitalist service. Given that patient has a history of COPD and follows us in the pulmonary office, pulmonary service now consulted for additional management/recommendations.
When I saw the patient today he was in bed, in no acute distress, on 2 L/min nasal cannula breathing comfortably. Per the RN, yesterday after he received his Decadron he became very anxious and required Ativan to calm him down. BG also increased
to as high as 277. The patient currently feels short of breath, and understands that he has to stop smoking which she is motivated to do so. He was smoking up to 0.5 PPD prior to being admitted. He currently denies chest pain, cough, headache,
abdominal pain, nausea, vomiting, fevers or chills.
Of note patient follows with us in the office with Dr. Cordova with last visit on 04/26/2023. At that time he was still smoking about 0.5 PPD with [id number] history. He uses DuoNebs + budesonide, and was previously on Wixela for his severe COPD.
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 He had a 6-minute walk test in 04/2022 with ori SpO2 93% with total walk of 1200 feet � he did not require oxygen. 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 He has a history of mild JUAN with a respiratory
event index of 10.6 events per hour and had EDS at that time. He had declined CPAP therapy at that time. He also had evidence of nocturnal hypoxia seen on external oximetry testing from 05/2021 - his SpO2 was <= 88% for 5 hours and 41 minutes while
on room air. Ori SpO2 was 78% at that time. He declined O2 therapy with sleep. He was advised to follow-up in April 2024 with a repeat 6MWT. His last PFTs were performed in April 2023 showing severe COPD with equivocal bronchodilator
response, no evidence of restriction with severe gas exchange capacity defect (DLco: 34%, DLco/VA: 43%).
PMHx: COPD, hepatitis C s/p treatment with SVR, GERD, history of sinus infections, colon polyps, DM type II, hypertension, torn left shoulder muscle, lumbar disc disease, hyperlipidemia, seasonal allergies, personal history of COVID-19 (January 2022),
tobacco use disorder, history of JUAN (mild with respiratory event index 10.6 events per hour)
PSHx: Lump removed from back, abdominal hernia repair, right elbow surgery, L5/S1 micro discectomy, tooth extraction
Past Medical History
Past Medical History: Other (Above as per HPI)
Past Surgical History: Other (Above as per HPI)
Social History
Tobacco: Smoker ([id number] history, smokes 0.5 PPD)
Alcohol: None
Drug: None
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
Family History
Family History: Cancer (Father (lung cancer), mother (lung cancer) + older sister ( from pancreatic cancer)) and Diabetes (Brothers X4)
Allergies / Home Medications
Allergies
Allergy/AdvReac Type Severity Reaction Status Date / Time
No Known Allergies Allergy Verified 03/07/24 13:05
Home Medications
�Medication �Instructions �Recorded �Confirmed �Last Taken �Type
omeprazole 20 mg capsule,delayed 20 mg PO DAILY Gastrointestinal 02/04/12 03/07/24 02/04/12 History
release Issue
montelukast 10 mg tablet 10 mg PO HS Lung/Breathing Issues 01/15/18 03/07/24 03/06/24 History
acetaminophen 500 mg tablet 500 mg PO HS Pain 03/07/24 03/07/24 03/06/24 History
(Tylenol Extra Strength)
albuterol sulfate 90 mcg/actuation 2 puff inhalation R Q6HPRN PRN sob 03/07/24 03/07/24 03/07/24 History
aerosol inhaler
aspirin 81 mg tablet,delayed 81 mg PO DAILY Blood Clot 03/07/24 03/07/24 Unknown History
release Prevention/Tx
atorvastatin 20 mg tablet 20 mg PO DAILY High Cholesterol 03/07/24 03/07/24 Unknown History
budesonide 0.5 mg/2 mL suspension 0.5 mg inhalation R BID 03/07/24 03/07/24 Unknown History
for nebulization Lung/Breathing Issues
cetirizine 10 mg capsule (Zyrtec) 10 mg PO DAILY Allergies 03/07/24 03/07/24 Unknown History
insulin glargine 100 unit/mL (3 10 unit SC HS Diabetes 03/07/24 03/07/24 03/06/24 History
mL) subcutaneous pen (Lantus
Solostar U-100 Insulin)
ipratropium 0.5 mg-albuterol 3 mg 3 ml inhalation R BID 03/07/24 03/07/24 Unknown History
(2.5 mg base)/3 mL nebulization Lung/Breathing Issues
soln
losartan 100 mg tablet 100 mg PO DAILY Blood Pressure 03/07/24 03/07/24 Unknown History
melatonin 5 mg tablet 5 mg PO HS Sleep 03/07/24 03/07/24 03/06/24 History
metformin 1,000 mg tablet 1,000 mg PO BIDWMEAL Diabetes 03/07/24 03/07/24 Unknown History
multivitamin with minerals-folic 1 tab PO DAILY Supplement 03/07/24 03/07/24 Unknown History
acid 80 mcg chewable tablet
(Centrum Adult 50 Plus)
naproxen sodium 220 mg tablet 220 mg PO HS Pain 03/07/24 03/07/24 03/06/24 History
(Aleve)
repaglinide 2 mg tablet 2 mg PO DAILY Diabetes 03/07/24 03/07/24 Unknown History
Review of Systems
-
History Source: Patient
All other systems: Negative unless noted
Vitals / Labs / Diagnostic Testing
Vital Signs
Temp Pulse Resp BP Pulse Ox
98.6 F 118 16 164/96 97
03/10/24 11:37 03/10/24 11:37 03/10/24 11:37 03/10/24 11:37 03/10/24 11:37
Lab Data
03/10/24 07:07
03/10/24 07:07
Microbiology
03/08/24 14:44 Feces/Stool Salmonella/Shigella Culture - Final
No Salmonella, Shigella, Aeromonas or Plesiomonas species
isolated.
03/08/24 14:44 Feces/Stool Campylobacter Culture - Final
No Campylobacter species isolated.
03/08/24 14:44 Feces/Stool Shiga Toxin Test - Final
No E. coli Shiga Toxin 1 or 2 detected.
03/08/24 01:13 Sputum Respiratory Culture - Final
Usual Respiratory Renata
03/08/24 01:13 Sputum Gram Stain - Final
03/07/24 20:19 Blood/Venous Blood Culture - Preliminary
No Growth in 48 hours- Final report to follow
03/07/24 17:09 Blood/Venous Blood Culture - Preliminary
No Growth in 48 hours- Final report to follow
03/08/24 14:44 Feces/Stool C. difficile GDH Antigen & Toxins - Final
Negative for toxigenic C.difficile
03/08/24 04:08 Urine Legionella Urinary Antigen - Final
Negative for Legionella pneumophila Serogroup 1 antigen.
A negative result does not rule out the possiblity of
Legionella infection due to other serogroups or species of
Legionella. Clinical correlation is recommended.
03/08/24 04:08 Urine Streptococcus pneumoniae Antigen (M - Final
Negative for Streptococcus pneumoniae antigen.
A negative result does not exclude infection with
Streptococcus pneumoniae. Clinical correlation is
recommended.
03/07/24 13:34 Nasal Swab Influenza Types A & B (ANA) - Final
Negative for Influenza A & B, NAAT
Negative results must be combined with clinical observations
and patient history.
Nucleic Acid Amplification test (NAAT)performed on the
[employer] platform.
Diagnostic Testing:
Physical Exam
-
HEENT: Normocephalic and Anicteric
Cardiovascular: S1/S2 and Peripheral Edema (Negative)
Respiratory: Wheeze (Ware during expiration bilaterally), Rales (Negative), Rhonchi (Negative) and Non-Labored Respirations
GI: Soft, Non Distended, Non Tender and Normal Bowel Sounds
Neurology: Awake and Alert
Skin: Warm and Dry
General: Comfortable and Fever (Negative)
Assessment
-
Assessment: 68-year-old male tobacco smoker with a past medical history of COPD, HCV s/p treatment with SVR, GERD, history of sinus infections, DM type II and hypertension presents with worsening cough and congestion. He was initially afebrile in
the ER to 98.8 �F, breathing at 30 breaths/min, tachycardic to 121 and saturating 92% on room air, with BP 127/79. Labs showed leukocytosis to 13, hyponatremia 127, hypoosmolarity to 263, COVID antigen negative, flu A/B- and blood cultures were
collected. CXR obtained showing fullness at the right middle lobe, and CTA chest was negative for any acute PE with centrilobular/paraseptal emphysema and a right middle lobe/right perihilar consolidative opacity. He was given nebulized
bronchodilators plus Decadron in the ER and admitted to the hospitalist service. Given that patient has a history of COPD and follows us in the pulmonary office, pulmonary service now consulted for additional management/recommendations.
Chronic conditions NEWS INTERN: COPD, hepatitis C s/p treatment with SVR, GERD, history of sinus infections, colon polyps, DM type II, hypertension, torn left shoulder muscle, lumbar disc disease, hyperlipidemia, seasonal allergies, personal history of
COVID-19 (January 2022), tobacco use disorder, history of JUAN (mild with respiratory event index 10.6 events per hour)
Impression:
#COPD exacerbation in setting of RML/Right superior perihilar pneumonia
#Acute respiratory failure with hypoxia due to above
#Right hilar/mediastinal lymphadenopathy - due to PNA vs possible undiagnosed malignancy
#Severe COPD with centrilobular/paraseptal emphysema (takes DuoNebs + budesonide at home)
#Tachycardia
#Hypochloremic, hyponatremia
#DM type II c/b hyperglycemia (A1C: 8.4 from 03/08/2024)
#Tobacco use disorder
Plan:
- Clinically and radiographically, patient has a right perihilar/RML pneumonia
- Considering patient is actively wheezing, I will start him on prednisone but monitor for delirium, agitation or anxiety as he seemed to have a reaction after he was given Decadron 10 mg in the ER
-Considering he had a negative reaction to 10 mg Decadron (which is equivalent to 66 mg prednisone), I will put him on 40 mg prednisone x 5 days
- Continue with broad-spectrum antibiotics and will treat for at least 7 days -currently on Rocephin/azithromycin s/p 3 days of doxy
- Check infectious workup with blood cultures + sputum cultures,; pt already negative for Legionella/strep pneumonia urine antigens
- Plan to repeat CT chest in about 4-6 weeks to follow right perihilar consolidative mass to resolution
-A right perihilar/lymphadenopathy persistent he should be set up for biopsy + EBUS; could consider PET/CT scan first if lesion persists
- Maintain SpO2 >88-94% with supplemental O2 as needed
- Continue with nebulized bronchodilators but use Atrovent + xopenex given his tachycardia (at home patient takes DuoNebs + budesonide)
- prn nebulized bronchodilators with atrovent
- Incentive spirometer
- Nicotine replacement therapy - nicotine patch + lozenges, which should be continued upon discharge as well
- Trend serum Na level with goal 135-145
- Replete electrolytes with K>4, Mg>2
- Maintain euglycemia with goal BG >100 and <180
- DVT ppx - LMWH
Pulmonary service will continue to follow along.
Total time spent today was 55 minutes for this encounter. Time includes reviewing laboratory test/imaging results, reviewing pertinent medical records, obtaining and reviewing medical history, performing an appropriate exam, ordering medications,
tests and procedures. Time also includes documentation of this encounter, coordinating patient care and communicating with other healthcare professionals. Total time does not include separately billed tests performed on this date of service.
Data:
CTA Chest 03-07-2024:
No definite evidence of pulmonary embolism given limitations related to respiratory motion degradation/artifact especially in the posterior lung bases.
COPD.
Right superior perihilar pulmonary parenchymal consolidation versus mass (pulmonary mass versus adenopathy). Mild right hilar and mediastinal adenopathy. Recommend further evaluation/follow-up PET/CT imaging.
[2024-03-10] MEDS: ZITHROMAX INFUSION 250 IV (13:42)
[2024-03-10] MEDS: ROBITUSSIN AC 5 ML PO ×2 (13:43→20:45)
[2024-03-10] MEDS: ATIVAN 0.25 MG PO ×2 (13:43→21:55)
[2024-03-10 15:55] VITALS: BP 150/87
[2024-03-10] MEDS: TESSALON PERLES 200 MG PO ×2 (16:07→20:56)
[2024-03-10 16:12] LABS: Glucose - Point of Care 105 mg/dl (70-99)
[2024-03-10] MEDS: STERILE WATER FOR INJECTION 10 ML IV (17:30)
[2024-03-10] MEDS: ROCEPHIN 1000 MG IV (17:30)
[2024-03-10] MEDS: LOVENOX 40 MG SC (17:30)
[2024-03-10] MEDS: PULMICORT 0.5 MG INH (19:20)
[2024-03-10 19:25] VITALS: BP 124/80
[2024-03-10] MEDS: MUCINEX PO (20:47)
[2024-03-10 21:33] LABS: Glucose - Point of Care 175 mg/dl (70-99)
[2024-03-10] MEDS: MELATONIN 5 MG PO (21:56)
[2024-03-10] MEDS: LANTUS 0.100000000000000006 UNITS SC (21:57)
[2024-03-10 23:24] VITALS: BP 117/66
[2024-03-11 03:17] VITALS: BP 135/76
[2024-03-11] MEDS: ROBITUSSIN AC 5 ML PO (03:32)
[2024-03-11 07:00] VITALS: BP 135/81
[2024-03-11] MEDS: PULMICORT 0.5 MG INH (07:21)
[2024-03-11] MEDS: XOPENEX 0.63 MG INHALANT SOLUTION 0.630000000000000004 MG INH ×2 (07:21→13:21)
[2024-03-11 07:27] LABS: % Basophils 0.2 % (0-2); % Eosinophils 0.6 % (0-6); % Immature Granulocytes 0.7 % (0-0.5); % Lymphocytes 22.3 % (20.5-51.1); % Monocytes 9.9 % (1.7-9.3); % Neutrophils 66.3 % (42.2-75.2); Absolute Eosinophils 0.1 10^3/uL (0-0.7); Absolute Immature Granulocytes 0.1 10^3/uL (0-0.05); Absolute Monocytes 0.9 10^3/uL (0.1-0.6); Absolute Neutrophils 5.9 10^3/uL (1.4-6.5); Hematocrit 39.9 % (39.0-52.0); Hemoglobin 13.5 g/dL (13.0-18.0); Mean Corp Hgb Conc. 33.8 g/dL (33.0-37.0); Mean Corpuscular Hgb 30.8 pg (27.0-31.0); Mean Corpuscular Volume 91.1 fL (80.0-94.0); Mean Platelet Volume 8.4 fL (7.4-10.4); Nucleated Red Blood Cells % 0 % (-); Platelet Count 254 10^3/uL (130-400); Red Blood Cell Count 4.38 10^6/uL (4.70-6.10); Red Cell Dist. Width 12.9 % (11.5-14.5); White Blood Cell Count 8.9 10^3/uL (4.8-10.8)
[2024-03-11 08:00] LABS: Glucose - Point of Care 93 mg/dl (70-99)
[2024-03-11 08:17] LABS: Blood Urea Nitrogen 12 mg/dl (9-20); Calcium 8.4 mg/dl (8.4-10.2); Carbon Dioxide 29 mmol/L (22-30); Chloride 92 mmol/L (98-107); Estimated Creatinine Clearance 85 ml/min; Glucose 93 mg/dl (70-99); Magnesium 1.9 mg/dl (1.6-2.3); Phosphorus 2.8 mg/dl (2.5-4.5); Sodium 129 mmol/L (135-145); eGFR > 60.00
[2024-03-11] MEDS: NOVOLOG FLEXPEN-MODERATE RESISTANCE SC (08:23)
[2024-03-11] MEDS: LIPITOR 20 MG PO (09:20)
[2024-03-11] MEDS: ASPIR LOW (ENTERIC COATED) 81 MG PO (09:20)
[2024-03-11] MEDS: ZYRTEC 10 MG PO (09:20)
[2024-03-11] MEDS: NICODERM TRANSDERMAL 21 MG TRANSDERM (09:20)
[2024-03-11] MEDS: COZAAR 100 MG PO (09:20)
[2024-03-11] MEDS: DELTASONE 40 MG PO (09:20)
[2024-03-11] MEDS: LIDOCAINE 4% PATCH 1 PATCH TOPICAL (09:20)
[2024-03-11] MEDS: SINGULAIR 10 MG PO (09:20)
[2024-03-11] MEDS: PROTONIX 40 MG PO (09:21)
[2024-03-11] MEDS: MUCINEX 600 MG PO (09:21)
[2024-03-11 11:10] VITALS: BP 123/67
[2024-03-11 11:42] LABS: Glucose - Point of Care 191 mg/dl (70-99)
--- NOTE | 2024-03-11 12:12 | W.PN.PUL3 ---
Today's Communication / Plan
-
Antibiotics to complete 7-day course assuming he continues to improve and remains afebrile for 48 hours prior to stopping Abx
Nebulized bronchodilators, and resume home nebulized medications upon discharge
Walk study shows he needs 3 L/min with activity, room air at rest to Case management consulted
CM said they will also try to get home PT for the patient
Outpatient follow-up with our office will be arranged with repeat imaging in about 4-6 weeks to see if right suprahilar lesion has persisted otherwise he may need bronchoscopy with biopsy
Patient is being prepared for discharge home. Please discharge on prednisone taper starting at 40 mg and reduce by 10 mg every fourth day until off. Pulmonary service will now sign off. Please reconsult if there are any additional
questions/concerns, or if patient's respiratory status deteriorates.
Assessment
-
Assessment: 68-year-old male tobacco smoker with a past medical history of COPD, HCV s/p treatment with SVR, GERD, history of sinus infections, DM type II and hypertension presents with worsening cough and congestion. He was initially afebrile in
the ER to 98.8 �F, breathing at 30 breaths/min, tachycardic to 121 and saturating 92% on room air, with BP 127/79. Labs showed leukocytosis to 13, hyponatremia 127, hypoosmolarity to 263, COVID antigen negative, flu A/B- and blood cultures were
collected. CXR obtained showing fullness at the right middle lobe, and CTA chest was negative for any acute PE with centrilobular/paraseptal emphysema and a right middle lobe/right perihilar consolidative opacity. He was given nebulized
bronchodilators plus Decadron in the ER and admitted to the hospitalist service. Given that patient has a history of COPD and follows us in the pulmonary office, pulmonary service now consulted for additional management/recommendations.
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
COVID-19 (January 2022), tobacco use disorder, history of JUAN (mild with respiratory event index 10.6 events per hour)
Impression:
#COPD exacerbation in setting of RML/Right superior perihilar pneumonia
#Acute respiratory failure with hypoxia due to above
#Right hilar/mediastinal lymphadenopathy - due to PNA vs possible undiagnosed malignancy
#Severe COPD with centrilobular/paraseptal emphysema (takes DuoNebs + budesonide at home)
#Tachycardia
#Hypochloremic, hyponatremia
#DM type II c/b hyperglycemia (A1C: 8.4 from 03/08/2024)
#Tobacco use disorder
Plan:
- Patient has a right perihilar/RML pneumonia both clinically and radiographically
- Considering patient is actively wheezing, I started him on prednisone but monitor for delirium, agitation or anxiety as he seemed to have a reaction after he was given Decadron 10 mg in the ER
-Considering he had a negative reaction to 10 mg Decadron (which is equivalent to 66 mg prednisone), I started him on 40 mg prednisone
- Continue with broad-spectrum antibiotics and will treat for at least 7 days -currently on Rocephin/azithromycin s/p 3 days of doxy
- Check infectious workup with blood cultures + sputum cultures,; pt already negative for Legionella/strep pneumonia urine antigens
- Plan to repeat CT chest in about 4-6 weeks to follow right perihilar consolidative mass to resolution
-A right perihilar/lymphadenopathy persistent he should be set up for biopsy + EBUS; could consider PET/CT scan first if lesion persists
- Maintain SpO2 >88-94% with supplemental O2 as needed
- Continue with nebulized bronchodilators but use Atrovent + xopenex given his borderline tachycardia (at home patient takes DuoNebs + budesonide) - resume home nebs upon discharge
- prn nebulized bronchodilators with atrovent
- Incentive spirometer encouraged
- Nicotine replacement therapy - nicotine patch + lozenges, which should be continued upon discharge as well - he understands he needs to have strict tobacco cessation once he is discharged
- Trend serum Na level with goal 135-145
- Replete electrolytes with K>4, Mg>2
- Maintain euglycemia with goal BG >100 and <180
- DVT ppx - LMWH
Patient is being prepared for discharge home. Please discharge on prednisone taper starting at 40 mg and reduce by 10 mg every fourth day until off. Pulmonary service will now sign off. Thank you for allowing us to be involved in the care of this
patient. Please reconsult if there are any additional questions/concerns, or if patient's respiratory status deteriorates.
Total time spent today was 35 minutes for this encounter. Time includes reviewing laboratory test/imaging results, reviewing pertinent medical records, obtaining and reviewing medical history, performing an appropriate exam, ordering medications,
tests and procedures. Time also includes documentation of this encounter, coordinating patient care and communicating with other healthcare professionals. Total time does not include separately billed tests performed on this date of service.
Data:
CTA Chest 03-07-2024:
No definite evidence of pulmonary embolism given limitations related to respiratory motion degradation/artifact especially in the posterior lung bases.
COPD.
Right superior perihilar pulmonary parenchymal consolidation versus mass (pulmonary mass versus adenopathy). Mild right hilar and mediastinal adenopathy. Recommend further evaluation/follow-up PET/CT imaging.
Subjective Data
-
Date of Service:
Date of Service: March 11, 2024
Chief Complaint: Pulmonary Follow Up
Subjective:
Patient seen and evaluated today at bedside. Currently on 3 L/min nasal cannula. Has mild shortness of breath at rest, but it is markedly improved compared to admission. He is eager to go home. He understands that he cannot smoke again. He
denies chest pain, headache, abdominal pain, fevers or chills.
Review of Systems
General: Other (Negative unless mentioned above)
Objective Data
Data Reviewed
Vital Signs / I&O / Oxygen:
Vital Signs
Temp Pulse Resp BP Pulse Ox
97.7 F 104 18 123/67 91
03/11/24 11:10 03/11/24 11:10 03/11/24 11:10 03/11/24 11:10 03/11/24 11:10
Intake and Output
03/10/24 03/11/24 03/12/24
06:59 06:59 06:59
Intake Total 1440 / 1440 1200 / 1200
Output Total 200 / 200
Balance 1440 / 1440 1000 / 1000
SaO2 91
Nasal Cannula flow liters per 2
minute
Physical Exam
General: Respiratory Distress (Negative) and Comfortable
HEENT: Normocephalic and Anicteric
Cardiovascular: S1-S2 and Peripheral Edema (Negative)
Respiratory: Wheeze (Mild expiratory wheezing heard bilaterally), Crackles (Negative), Rhonchi (Negative) and Non-Labored Respirations
GI: Soft, Non Distended, Non Tender and Normal Bowel Sounds
Neurology: AO x 3 and Tremors (Negative)
Skin: Warm, Dry and Jaundice (Negative)
Labs/Micro/Reports
Lab Data
03/11/24 07:09
03/11/24 07:09
Microbiology
03/07/24 20:19 Blood/Venous Blood Culture - Preliminary
No Growth in 72 hours- Final report to follow
03/07/24 17:09 Blood/Venous Blood Culture - Preliminary
No Growth in 72 hours- Final report to follow
03/08/24 14:44 Feces/Stool Salmonella/Shigella Culture - Final
No Salmonella, Shigella, Aeromonas or Plesiomonas species
isolated.
03/08/24 14:44 Feces/Stool Campylobacter Culture - Final
No Campylobacter species isolated.
03/08/24 14:44 Feces/Stool Shiga Toxin Test - Final
No E. coli Shiga Toxin 1 or 2 detected.
03/08/24 01:13 Sputum Respiratory Culture - Final
Usual Respiratory Renata
03/08/24 01:13 Sputum Gram Stain - Final
03/08/24 14:44 Feces/Stool C. difficile GDH Antigen & Toxins - Final
Negative for toxigenic C.difficile
03/08/24 04:08 Urine Legionella Urinary Antigen - Final
Negative for Legionella pneumophila Serogroup 1 antigen.
A negative result does not rule out the possiblity of
Legionella infection due to other serogroups or species of
Legionella. Clinical correlation is recommended.
03/08/24 04:08 Urine Streptococcus pneumoniae Antigen (M - Final
Negative for Streptococcus pneumoniae antigen.
A negative result does not exclude infection with
Streptococcus pneumoniae. Clinical correlation is
recommended.
--- NOTE | 2024-03-11 12:19 | W.PN.HOSP.TC ---
Addendum entered and electronically signed by Altaf Cheney MD 03/11/24 14:42:
Patient is in need of oxygen on exertion due to pulse oximetry of 91% on room air at rest; 87% on room air with exertion.
Patient was placed on 3L O2 via nasal cannula with saturation of 93%. Oxygen will help to improve hypoxemia.
Patient is mobile within the home. Albuterol therapy, duoneb bronchodilators therapy and IV decadron has been discussed and is ineffective in treating hypoxemia-related symptoms.
Oxygen will improve the patient's symptoms.
Original Note:
Today's Communication/Plan
-
Dispo-home o2 eval, po prednisone, po abx. start dispo
Assessment / Plan
Assessment / Plan
Physical Exam
General: No pallor, cyanosis, or jaundice. No acute distress. Appears comfortable at this time
HEENT: Throat clear. PERRLA Normocephalic atraumatic
NECK: Supple. No JVD Carotid Bruits
RESPIRATORY: wheezing improved On nasal cannula supplementation 2 L
CVS: S1, S2 normal. RRR. No murmur, rub or gallop.
ABDOMEN: Soft, non-tender. No distension. BS+/normal.
Musculoskeletal/EXTREMITIES: Upper paraspinal tenderness noted no peripheral cyanosis or edema.
HOSPITAL PHARMACIST: AOx3. No focal deficits.
68 male history COPD GERD diabetes type 2 hepatitis C current smoker presents with progressive weakness generalized body aches back pain cough fever for the past few days. Further reports constipation. Denies dysuria abdomen pain palpitations.
Denies chest pain at rest. Reports pleuritic chest pain with cough productive sputum. Ambulatory without assist at baseline, patient has largely been sedentary for the past few days due to symptoms. Required 2 L oxygen supplementation. Tachy
possibly due to albuterol bronchodilator treatments. Blood pressure stable afebrile. Labs were notable for mild leukocytosis and mild hyponatremia. Chest x-ray noted no acute abnormalities. COVID flu negative. Wheezing mild though recently
completed bronchodilator treatments. Admitted for treatment COPD exacerbation versus likely pneumonia
#Sepsis Pneumonia (white count elevation fever consolidation noted on CT)
# Acute hypoxic respiratory failure likely from COPD exacerbation
#Cough
-COVID Flu Neg
-Chest x-ray with no acute cardiopulmonary process
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 No PE noted.
-IV Decadron 4 Mg every 8 hours since discontinued d/t anxiousness/agitation. Pt does have +exp wheezing b/l. Would benefit from steroids low dose.
-scheduled Xopenex prn Xopenex and Atrovent (avoiding albuterol d/t tachycardia)
-Singulair continued
-Continue supplemental oxygen to keep sat greater than 92
-Wean as tolerated
-strep pneumoniae, urine legionella neg
-follow blood,sputum cultures -neg
-cont Ceftriaxone, Doxycycline discontinued in favor of Azithromycin (QTc wnl) 3 day course
-scheduled mucinex, prn robitussin tessalon perle
-po prednisone 40mg x 5 days
-OP pulm f/u with OP repeat CT scan
Anxiousness/agitated
-possibly d/t steroids since discontinued
-prn ativan PO 0.25 mg
-Recommended OP pcp f/u for maintenance regimen
# Acute hyponatremia 120s
-fluid restriction, Na since improved
-fluid restriction relaxed from 48 oz to 60 oz
# Essential hypertension
-losartan continued with hold parameters
# GERD
-PPI continued
# Type 2 diabetes
-hold metformin and repaglinide
-medium Sliding scale
-Lantus 10u at hs
-Carb controlled diet
#nicotine dependence
-smokes 10-15 cigarettes daily
-nicotine patch
-nicotine lozenge prn
#generalized pain/chronic back pain
-lidocaine and Tylenol prn for pain
# DVT prophylaxis
-Lovenox subcu
#CODE STATUS
-Full code
Dispo-home o2 eval, po prednisone, po abx. start dispo
Anticipated Discharge: Today
Subjective/Interval History
-
Date of Service: March 11, 2024
remains on oxygen
sob has improved
Objective Data
-
Labs:
Laboratory Results
03/11/24
07:09
WBC 8.9
Hgb 13.5
Hct 39.9
Plt Count 254
Sodium 129 L
Potassium 4.0
Chloride 92 L
Carbon Dioxide 29
BUN 12
Creatinine 0.9
Glucose 93
Calcium 8.4
Vital Signs:
Vital Signs
Temp Pulse Resp BP Pulse Ox
97.7 F 104 18 123/67 91
03/11/24 11:10 03/11/24 11:10 03/11/24 11:10 03/11/24 11:10 03/11/24 11:10
I&O
03/10/24 03/11/24 03/12/24
06:59 06:59 06:59
Intake Total 1440 / 1440 1200 / 1200
Output Total 200 / 200
Balance 1440 / 1440 1000 / 1000
[2024-03-11] MEDS: NOVOLOG FLEXPEN-MODERATE RESISTANCE 1 UNITS SC (12:29)
--- NOTE | 2024-03-11 13:34 | W.DCSUMMARY ---
Discharge Summary
Discharge Data
Date of Admission: 03/07/24
Date of Discharge: 03/11/24
-
Pending Results: No
Hospital Course
68 male history COPD GERD diabetes type 2 hepatitis C current smoker presents with progressive weakness generalized body aches back pain cough fever for the past few days. Further reports constipation. Denies dysuria abdomen pain palpitations.
Denies chest pain at rest. Reports pleuritic chest pain with cough productive sputum. Ambulatory without assist at baseline, patient has largely been sedentary for the past few days due to symptoms. Required 2 L oxygen supplementation. Tachy
possibly due to albuterol bronchodilator treatments. Blood pressure stable afebrile. Labs were notable for mild leukocytosis and mild hyponatremia. Chest x-ray noted no acute abnormalities. COVID flu negative. Patient was found to be in COPD
exacerbation. Initially patient received high-dose of IV Decadron leading to severe anxiety and agitation. Steroids were discontinued. Bronchodilators were continued. Patient was also found to be septic secondary to pneumonia and was started on
IV azithromycin and ceftriaxone. Ceftriaxone was transitioned to p.o. cefdinir on discharge. Pulmonary was consulted. Patient was started on p.o. prednisone. Patient was able to tolerate prednisone and lower dose without any anxiety or
agitation. Patient be discharged on a p.o. prednisone taper. Patient also qualified for home oxygenation. Patient was recommended to follow-up outpatient with [facility].
Discharge Plan
-
Patient Disposition: Home (Routine Discharge)
Discharge Diagnosis/Procedures: Sepsis secondary community-acquired pneumonia
Acute hypoxic respiratory failure
Acute COPD exacerbation
Anxiety
Mild acute hyponatremia
Condition: Fair
Diet: Diabetic, Carb Controlled
Activity: With assistance and As tolerated
Driving Restrictions: As prior to admission
Others Tests: Plan to repeat CT chest in about 4-6 weeks to follow right perihilar consolidative mass to resolution
Referrals:
Octavio Cordova MD [Active] - in two to three weeks
Wilian Wiggins MD [Family Provider] - in less than 1 week
Prescriptions:
New
benzonatate 100 mg Capsule
200 mg PO TIDPRN PRN (Reason: cough) Qty: 40 0RF
cefdinir 300 mg capsule
300 mg PO BID Qty: 8 0RF
codeine-guaifenesin 10-100 mg/5 mL Liquid
5 ml PO BIDPRN PRN (Reason: SEVERE COUGH) Qty: 50 0RF
prednisone 10 mg Tablet
See Rx Instructions .ROUTE .COMPLEX Qty: 36 0RF
Rx Instructions:
Take By Mouth:
40 mg daily x3 days, 30 mg daily x4 days,
20 mg daily x4 days, 10 mg daily x4 days.
Continued
omeprazole 20 MG capsule,delayed release(DR/EC)
20 mg PO DAILY
montelukast 10 MG tablet
10 mg PO HS
repaglinide 2 mg Tablet
2 mg PO DAILY
Patient Comments:
03/07/24: it is prescribed to be taken 15-30 minutes before meals three times a day, but patient states he only takes one in the morning.
atorvastatin 20 mg Tablet
20 mg PO DAILY
ipratropium-albuterol 0.5 mg-3 mg(2.5 mg base)/3 mL Solution For Nebulization
3 ml INHALATION R BID
aspirin 81 mg Tablet,Delayed Release (Dr/Ec)
81 mg PO DAILY
acetaminophen [Tylenol Extra Strength] 500 mg Tablet
500 mg PO HS
metformin 1,000 mg tablet
1,000 mg PO BIDWMEAL
naproxen sodium [Aleve] 220 mg Tablet
220 mg PO HS
budesonide 0.5 mg/2 mL Suspension For Nebulization
0.5 mg INHALATION R BID
albuterol sulfate 90 mcg/actuation Hfa Aerosol Inhaler
2 puff INHALATION R Q6HPRN PRN (Reason: sob)
losartan 100 mg Tablet
100 mg PO DAILY
insulin glargine [Lantus Solostar U-100 Insulin] 100 unit/mL (3 mL) Insulin Pen
10 unit SC HS
melatonin 5 mg Tablet
5 mg PO HS
Zyrtec 10 mg Capsule
10 mg PO DAILY
Centrum Adult 50 Plus 80 mcg Tablet,Chewable
1 tab PO DAILY
Discharge Orders:
Discharge Patient (As Directed); Ordered 03/11/24
Ordered By: Altaf Cheney
Discharge Date and Time
Discharge Date/Time: 03/11/24 18:14
Print Language: BELARUSIAN
[2024-03-11 15:00] VITALS: BP 128/73
--- NOTE | 2024-03-11 15:27 | W.[place]-PDMP ---
[place]-PD[place]
-
Checked the [place]- Prescription Drug Monitoring Program website, no red flags identified; safe to proceed with prescription.
--- NOTE | 2024-03-11 15:48 | CM ---
Patient seen bedside.
Patient for d/c home today.
patient will require home oxygen.
Options reviewed with patient.
[employer] to deliver home oxygen before 5 pm.
Patient agreeable to [facility]N since he is new to oxygen and would also like therapy since he has been in bed so long.
Options reviewed, [facility] referral sent via TT.
Plan: home with [facility] and home oxygen
--- NOTE | 2024-03-11 16:07 | VNURNOTE ---
Home Health Liaisons met with patient at bedside to discuss [facility] nurse/therapy, visits, schedule and homebound status. Patient is agreeable and understands that visits at home will be 2-3 x per week to assess and teach medical management and new
oxygen therapy. [facility] brochure provided with contact information. Patient is aware that [facility] will contact them for start of care in 1-2 days after discharge from .
[facility] referral completed in [facility].
[2024-03-11 16:54] LABS: Glucose - Point of Care 341 mg/dl (70-99)
[2024-03-11] MEDS: NOVOLOG FLEXPEN-MODERATE RESISTANCE 7 UNITS SC (17:22)
== END 2024-03-11 18:14 | disposition home health service (06) | DRG 871 ==
LOC: 4 WEST ACU 17:12
PROVIDERS: Registered Nurse; Student in an Organized Health Care Education/Training Program; ADMITTING PHYSICIAN Internal Medicine; ATTENDING PHYSICIAN Hospitalist; CONSULT PHYSICIAN Internal Medicine Critical Care Medicine; EMERGENCY PHYSICIAN Emergency Medicine; FAMILY PHYSICIAN Internal Medicine Geriatric Medicine
DX: A41.9 Sepsis, unspecified organism (principal); J18.9 Pneumonia, unspecified organism; J96.01 Acute respiratory failure with hypoxia; J44.1 Chronic obstructive pulmonary disease with (acute) exacerbation; J44.0 Chronic obstructive pulmonary disease with (acute) lower respiratory infection; E87.1 Hypo-osmolality and hyponatremia; J43.2 Centrilobular emphysema; I10 Essential (primary) hypertension; E11.65 Type 2 diabetes mellitus with hyperglycemia; E87.8 Other disorders of electrolyte and fluid balance, not elsewhere classified; E86.0 Dehydration; G47.33 Obstructive sleep apnea (adult) (pediatric); K21.9 Gastro-esophageal reflux disease without esophagitis; F17.210 Nicotine dependence, cigarettes, uncomplicated; M54.50 Low back pain, unspecified; E78.5 Hyperlipidemia, unspecified; J30.2 Other seasonal allergic rhinitis; R59.0 Localized enlarged lymph nodes; R45.1 Restlessness and agitation; F41.8 Other specified anxiety disorders; T38.0X5A Adverse effect of glucocorticoids and synthetic analogues, initial encounter; Y92.239 Unspecified place in hospital as the place of occurrence of the external cause; Z79.899 Other long term (current) drug therapy; Z86.19 Personal history of other infectious and parasitic diseases; Z87.19 Personal history of other diseases of the digestive system; Z86.16 Personal history of COVID-19; Z11.52 Encounter for screening for COVID-19; Z83.3 Family history of diabetes mellitus
CPT/HCPCS: 71046; 71275; 80048; 80053; 81003; 81015; 82570; 82962; 83036; 83605; 83735; 83880; 83930; 83935; 84100; 84133; 84300; 84484; 85025; 87040; 87045; 87046; 87070; 87205; 87324; 87427; 87449; 87502; 87811; 87899; 93005; 94640; 94644; 96374; 99291; Q9967

== ENCOUNTER → 2024-04-03 07:01 | Outpatient (REF) | payer MEDICARE, OTHER, SELFPAY ==
[2024-04-03 08:08] LABS: % Basophils 0.7 % (0-2); % Eosinophils 11.1 % (0-6); % Immature Granulocytes 0.2 % (0-0.5); % Lymphocytes 22.1 % (20.5-51.1); % Monocytes 9.6 % (1.7-9.3); % Neutrophils 56.3 % (42.2-75.2); Absolute Eosinophils 0.7 10^3/uL (0-0.7); Absolute Lymphocytes 1.3 10^3/uL (1.2-3.4); Absolute Monocytes 0.6 10^3/uL (0.1-0.6); Absolute Neutrophils 3.3 10^3/uL (1.4-6.5); Hematocrit 36.1 % (39.0-52.0); Hemoglobin 12.2 g/dL (13.0-18.0); Mean Corp Hgb Conc. 33.8 g/dL (33.0-37.0); Mean Corpuscular Hgb 30.7 pg (27.0-31.0); Mean Corpuscular Volume 90.7 fL (80.0-94.0); Mean Platelet Volume 8.3 fL (7.4-10.4); Nucleated Red Blood Cells % 0 % (-); Platelet Count 280 10^3/uL (130-400); Red Blood Cell Count 3.98 10^6/uL (4.70-6.10); Red Cell Dist. Width 13.3 % (11.5-14.5); White Blood Cell Count 5.9 10^3/uL (4.8-10.8)
[2024-04-03 09:03] LABS: ALT (SGPT) 27 U/L (0-50); AST (SGOT) 30 U/L (17-59); Albumin 3.8 g/dl (3.5-5.0); Alkaline Phosphatase 57 U/L (38-126); Blood Urea Nitrogen 12 mg/dl (9-20); Calcium 9.3 mg/dl (8.4-10.2); Carbon Dioxide 30 mmol/L (22-30); Chloride 99 mmol/L (98-107); Glucose 88 mg/dl (70-99); HDL Cholesterol 50 mg/dl; LDL Cholesterol, Calculated 94 mg/dl; Phosphorus 4.2 mg/dl (2.5-4.5); Potassium 4.7 mmol/L (3.5-5.1); Sodium 135 mmol/L (135-145); Total Bilirubin 0.6 mg/dl (0.2-1.3); Total Cholesterol 160 mg/dl (50-199); Total Protein 6.5 g/dl (6.3-8.2); Triglyceride 82 mg/dl (10-149); Very Low Density Lipoprotein 16 mg/dl (0-30); eGFR > 60.00
[2024-04-03 10:48] LABS: Glycohemoglobin (HgbA1c) 8.5 % (4.0-5.6)
[2024-04-03 12:15] LABS: Vitamin D, 25-OH*** 39.6 ng/mL (30-80)
[2024-04-03 12:28] LABS: PSA, Total - Screen 0.34 ng/ml (0.0-4.0); TSH Reflex To Free T4 3.62 uIU/ml (0.47-4.68)
== END ==
LOC: REG 07:01
PROVIDERS: ATTENDING PHYSICIAN Nurse Practitioner Primary Care
DX: E11.29 Type 2 diabetes mellitus with other diabetic kidney complication (principal); N18.2 Chronic kidney disease, stage 2 (mild); Z12.5 Encounter for screening for malignant neoplasm of prostate; E55.9 Vitamin D deficiency, unspecified; E03.8 Other specified hypothyroidism; J44.1 Chronic obstructive pulmonary disease with (acute) exacerbation; E87.1 Hypo-osmolality and hyponatremia; Z09 Encounter for follow-up examination after completed treatment for conditions other than malignant neoplasm
CPT/HCPCS: 36415; 80053; 80061; 82306; 83036; 84100; 84443; 85025; G0103

== ENCOUNTER → 2024-05-05 10:57 | Outpatient (REF) | payer MEDICARE, OTHER, SELFPAY | LOC: HWRAD 10:57 | PROVIDERS: ATTENDING PHYSICIAN Internal Medicine Critical Care Medicine; FAMILY PHYSICIAN Internal Medicine Geriatric Medicine | DX: Z09 Encounter for follow-up examination after completed treatment for conditions other than malignant neoplasm (principal); R59.0 Localized enlarged lymph nodes | CPT/HCPCS: 71260; Q9967 ==

== ENCOUNTER → 2024-06-12 07:55 | Outpatient (REF) | payer MEDICARE, OTHER, SELFPAY ==
[2024-06-12 10:16] LABS: Glycohemoglobin (HgbA1c) 7.4 % (4.0-5.6)
[2024-06-12 10:27] LABS: ALT (SGPT) 16 U/L (0-50); AST (SGOT) 23 U/L (17-59); Albumin 4.4 g/dl (3.5-5.0); Alkaline Phosphatase 46 U/L (38-126); Blood Urea Nitrogen 14 mg/dl (9-20); Calcium 9.6 mg/dl (8.4-10.2); Carbon Dioxide 31 mmol/L (22-30); Chloride 99 mmol/L (98-107); Glucose 131 mg/dl (70-99); Phosphorus 3.9 mg/dl (2.5-4.5); Potassium 4.7 mmol/L (3.5-5.1); Sodium 140 mmol/L (135-145); Total Bilirubin 0.5 mg/dl (0.2-1.3); eGFR > 60.00
== END ==
LOC: HWRAD 07:55
PROVIDERS: ATTENDING PHYSICIAN Nurse Practitioner Primary Care
DX: R93.2 Abnormal findings on diagnostic imaging of liver and biliary tract (principal); E11.42 Type 2 diabetes mellitus with diabetic polyneuropathy; E78.2 Mixed hyperlipidemia
CPT/HCPCS: 36415; 76700; 80053; 83036; 84100

== ENCOUNTER → 2024-07-09 11:33 | Outpatient (REF) | payer MEDICARE, OTHER, SELFPAY ==
[2024-07-09 16:56] LABS: Iron 97 ug/dl (49-181)
[2024-07-09 17:05] LABS: % Basophils 0.8 % (0-2); % Eosinophils 11.4 % (0-6); % Immature Granulocytes 0.4 % (0-0.5); % Lymphocytes 27.2 % (20.5-51.1); % Monocytes 11.3 % (1.7-9.3); % Neutrophils 48.9 % (42.2-75.2); Absolute Basophils 0.1 10^3/uL (0-0.2); Absolute Eosinophils 0.9 10^3/uL (0-0.7); Absolute Lymphocytes 2.2 10^3/uL (1.2-3.4); Absolute Monocytes 0.9 10^3/uL (0.1-0.6); Absolute Neutrophils 3.9 10^3/uL (1.4-6.5); Hematocrit 39.3 % (39.0-52.0); Hemoglobin 13.3 g/dL (13.0-18.0); Mean Corp Hgb Conc. 33.8 g/dL (33.0-37.0); Mean Corpuscular Hgb 31.3 pg (27.0-31.0); Mean Corpuscular Volume 92.5 fL (80.0-94.0); Mean Platelet Volume 9.8 fL (7.4-10.4); Nucleated Red Blood Cells % 0 % (-); Platelet Count 303 10^3/uL (130-400); Red Blood Cell Count 4.25 10^6/uL (4.70-6.10); White Blood Cell Count 7.9 10^3/uL (4.8-10.8)
[2024-07-09 17:06] LABS: Percent Saturation 25 % (20-50); Total Iron Binding Capacity 374 ug/dl (261-462)
[2024-07-09 17:09] LABS: NT-proBNP 92.5 pg/ml
[2024-07-09 18:04] LABS: Folate > 20.0 ng/ml (2.76-20); Vitamin B12 705 pg/ml (239-931)
== END ==
LOC: HWLAB 11:33
PROVIDERS: ATTENDING PHYSICIAN Nurse Practitioner Primary Care
DX: D64.9 Anemia, unspecified (principal); Z79.899 Other long term (current) drug therapy; R06.02 Shortness of breath
CPT/HCPCS: 36415; 82607; 82728; 82746; 83540; 83550; 83880; 85025

== ENCOUNTER → 2024-10-07 09:39 | Outpatient (REF) | payer MEDICARE, OTHER, SELFPAY ==
[2024-10-07 12:49] LABS: ALT (SGPT) 21 U/L (0-50); AST (SGOT) 25 U/L (17-59); Albumin 4.3 g/dl (3.5-5.0); Alkaline Phosphatase 62 U/L (38-126); Blood Urea Nitrogen 13 mg/dl (9-20); Calcium 9.5 mg/dl (8.4-10.2); Carbon Dioxide 27 mmol/L (22-30); Chloride 97 mmol/L (98-107); Glucose 172 mg/dl (70-99); Potassium 4.7 mmol/L (3.5-5.1); Sodium 135 mmol/L (135-145); Total Bilirubin 0.3 mg/dl (0.2-1.3); Total Protein 7.2 g/dl (6.3-8.2); eGFR > 60.00
[2024-10-07 14:02] LABS: Microalbumin, Random Urine 20.3 mg/dl (0.6-1.7)
[2024-10-07 14:33] LABS: Glycohemoglobin (HgbA1c) 8.5 % (4.0-5.6)
== END ==
LOC: HWLAB 09:39
PROVIDERS: ATTENDING PHYSICIAN Nurse Practitioner Primary Care
DX: E11.29 Type 2 diabetes mellitus with other diabetic kidney complication (principal); N18.2 Chronic kidney disease, stage 2 (mild); D64.9 Anemia, unspecified; Z79.899 Other long term (current) drug therapy; R06.02 Shortness of breath
CPT/HCPCS: 36415; 80053; 82043; 82570; 83036

== ENCOUNTER → 2024-10-29 10:53 | Outpatient (REF) | payer MEDICARE, OTHER, SELFPAY ==
[2024-10-29 15:20] LABS: % Basophils 0.6 % (0-2); % Eosinophils 11.9 % (0-6); % Immature Granulocytes 0.4 % (0-0.5); % Lymphocytes 24.6 % (20.5-51.1); % Monocytes 10.1 % (1.7-9.3); % Neutrophils 52.4 % (42.2-75.2); Absolute Basophils 0.1 10^3/uL (0-0.2); Absolute Monocytes 0.8 10^3/uL (0.1-0.6); Absolute Neutrophils 4.3 10^3/uL (1.4-6.5); Hematocrit 41.3 % (39.0-52.0); Mean Corp Hgb Conc. 33.9 g/dL (33.0-37.0); Mean Corpuscular Hgb 31.2 pg (27.0-31.0); Mean Platelet Volume 9.2 fL (7.4-10.4); Nucleated Red Blood Cells % 0 % (-); Platelet Count 276 10^3/uL (130-400); Red Blood Cell Count 4.49 10^6/uL (4.70-6.10); Red Cell Dist. Width 12.2 % (11.5-14.5); White Blood Cell Count 8.1 10^3/uL (4.8-10.8)
[2024-10-29 15:29] LABS: D-Dimer 0.35 ug/mlFEU (0.00-0.50)
[2024-10-29 15:34] LABS: NT-proBNP 40.8 pg/ml
== END ==
LOC: HWRCS 10:53
PROVIDERS: ATTENDING PHYSICIAN Nurse Practitioner Primary Care
DX: I11.9 Hypertensive heart disease without heart failure (principal); R06.02 Shortness of breath; D64.9 Anemia, unspecified; J44.9 Chronic obstructive pulmonary disease, unspecified
CPT/HCPCS: 36415; 83880; 85025; 85379; 93306

== ENCOUNTER → 2024-12-30 07:17 | Outpatient (REF) | payer MEDICARE, OTHER, SELFPAY ==
[2024-12-30 09:25] LABS: % Basophils 0.6 % (0-2); % Eosinophils 12.8 % (0-6); % Immature Granulocytes 0.3 % (0-0.5); % Lymphocytes 26.8 % (20.5-51.1); % Monocytes 10.1 % (1.7-9.3); % Neutrophils 49.4 % (42.2-75.2); Absolute Basophils 0.1 10^3/uL (0-0.2); Absolute Lymphocytes 2.1 10^3/uL (1.2-3.4); Absolute Monocytes 0.8 10^3/uL (0.1-0.6); Absolute Neutrophils 3.8 10^3/uL (1.4-6.5); Hematocrit 40.9 % (39.0-52.0); Hemoglobin 13.8 g/dL (13.0-18.0); Mean Corp Hgb Conc. 33.7 g/dL (33.0-37.0); Mean Corpuscular Hgb 31.4 pg (27.0-31.0); Mean Corpuscular Volume 93.2 fL (80.0-94.0); Mean Platelet Volume 9.2 fL (7.4-10.4); Nucleated Red Blood Cells % 0 % (-); Platelet Count 267 10^3/uL (130-400); Red Blood Cell Count 4.39 10^6/uL (4.70-6.10); Red Cell Dist. Width 12.2 % (11.5-14.5); White Blood Cell Count 7.8 10^3/uL (4.8-10.8)
[2024-12-30 09:49] LABS: ALT (SGPT) 19 U/L (0-50); AST (SGOT) 21 U/L (17-59); Alkaline Phosphatase 49 U/L (38-126); Blood Urea Nitrogen 13 mg/dl (9-20); Calcium 9.6 mg/dl (8.4-10.2); Carbon Dioxide 31 mmol/L (22-30); Chloride 101 mmol/L (98-107); Glucose 103 mg/dl (70-99); HDL Cholesterol 39 mg/dl; LDL Cholesterol, Calculated 78 mg/dl; Potassium 4.6 mmol/L (3.5-5.1); Sodium 139 mmol/L (135-145); Total Bilirubin 0.5 mg/dl (0.2-1.3); Total Cholesterol 142 mg/dl (50-199); Total Protein 6.8 g/dl (6.3-8.2); Triglyceride 127 mg/dl (10-149); Very Low Density Lipoprotein 25 mg/dl (0-30); eGFR > 60.00
[2024-12-30 10:47] LABS: Glycohemoglobin (HgbA1c) 8.7 % (4.0-5.6)
== END ==
LOC: HWLAB 07:17
PROVIDERS: ATTENDING PHYSICIAN Nurse Practitioner Primary Care
DX: I25.10 Atherosclerotic heart disease of native coronary artery without angina pectoris (principal); N18.2 Chronic kidney disease, stage 2 (mild); E78.2 Mixed hyperlipidemia; E11.9 Type 2 diabetes mellitus without complications
CPT/HCPCS: 36415; 80053; 80061; 83036; 85025

== ENCOUNTER → 2025-01-12 10:16 | Outpatient (REF) | payer MEDICARE, OTHER, SELFPAY | LOC: HWRAD 10:16 | PROVIDERS: ATTENDING PHYSICIAN Nurse Practitioner Primary Care | DX: J44.9 Chronic obstructive pulmonary disease, unspecified (principal); R06.02 Shortness of breath | CPT/HCPCS: 71046 ==

== ENCOUNTER 2025-01-13 13:42 | Emergency (ER) | payer MEDICARE, OTHER, SELFPAY ==
[2025-01-13 13:49] VITALS: BP 158/117
[2025-01-13 14:11] LABS: % Basophils 0.6 % (0-2); % Eosinophils 10.7 % (0-6); % Immature Granulocytes 0.4 % (0-0.5); % Lymphocytes 24.3 % (20.5-51.1); % Monocytes 9.9 % (1.7-9.3); % Neutrophils 54.1 % (42.2-75.2); Absolute Basophils 0.1 10^3/uL (0-0.2); Absolute Eosinophils 0.9 10^3/uL (0-0.7); Absolute Monocytes 0.8 10^3/uL (0.1-0.6); Absolute Neutrophils 4.4 10^3/uL (1.4-6.5); Hemoglobin 13.6 g/dL (13.0-18.0); Mean Corpuscular Hgb 31.3 pg (27.0-31.0); Mean Platelet Volume 8.7 fL (7.4-10.4); Nucleated Red Blood Cells % 0 % (-); Platelet Count 258 10^3/uL (130-400); Red Blood Cell Count 4.35 10^6/uL (4.70-6.10); Red Cell Dist. Width 12.2 % (11.5-14.5); White Blood Cell Count 8.2 10^3/uL (4.8-10.8)
[2025-01-13 14:42] LABS: ALT (SGPT) 19 U/L (0-50); AST (SGOT) 28 U/L (17-59); Albumin 4.1 g/dl (3.5-5.0); Alkaline Phosphatase 51 U/L (38-126); Blood Urea Nitrogen 12 mg/dl (9-20); Calcium 9.3 mg/dl (8.4-10.2); Carbon Dioxide 28 mmol/L (22-30); Chloride 100 mmol/L (98-107); Glucose 119 mg/dl (70-99); NT-proBNP 48.4 pg/ml; Potassium 4.4 mmol/L (3.5-5.1); Sodium 137 mmol/L (135-145); Total Bilirubin 0.5 mg/dl (0.2-1.3); Total Protein 6.8 g/dl (6.3-8.2); Troponin I < 0.012 ng/ml; eGFR > 60.00
[2025-01-13 16:40] VITALS: BP 173/111
--- NOTE | 2025-01-13 17:04 | ED.GENMED ---
History of Present Illness
General
Chief Complaint: Blood Pressure Problem
Source: patient
Exam Limitations: none
Time Seen by Provider: 01/13/25 16:38
History of Present Illness
History of Present Illness:
69-year-old male on a baby aspirin with history of hypertension former smoker, asthma presents with dizziness onset this morning. He describes a spinning sensation. There is no vision change including double vision blurry vision. No nausea or
vomiting. He has been dealing with a cough and shortness of breath over the past week. He feels he has been dealing with seasonal allergies. He had an x-ray done of [facility] chest [facility] and spoke with his doctor today over
the phone and they recommended he come here for evaluation. Patient denies chest pain unilateral numbness or weakness. He feels as though he does not need to be here in the hospital. He does note a dizziness that started today.
Past History
Past History
ED Past Medical History: COPD, GERD, NIDDM and Other (Hep C)
ED Past Surgical History: None
Social History
Tobacco: Smoker
Alcohol: Occasional
Personal:
Living: with family
Employment: Employed
Family History
Family History: Negative Diabetes, Hypertension, Early CAD, Asthma or Cancer
Phy Exam
Physical Exam
Physical Exam:
General: Well-appearing male no acute respiratory distress
HEENT: Normocephalic atraumatic
Heart: Regular rate and rhythm
Lungs: Clear no slight wheeze at the bottom
Extremities mild edema bilateral lower extremities
Skin is warm no rash
Course
Orders/Labs/Results
Orders:
Orders
01/13/25 13:53
Electrocardiogram (*1) Urgent
Reason for Study: Shortness of Breath
01/13/25 13:54
EKG- Treatment ONCE
01/13/25 13:55
CR Chest - 2 Views Urgent
Comment:
Reason For Exam: sob
01/13/25 14:04
Complete Blood Count/With Diff Urgent
Comprehensive Metabolic Panel Urgent
NT-proBNP Urgent
Troponin I Urgent
01/13/25 16:59
Ipratropium/Albuterol Sulfate [Duoneb] 3 ml INH R NOW ONE
01/13/25 17:00
CT Head W/o Iv Contrast Urgent
Comment:
Reason For Exam: dizzy, elevated BP
Abnormal Lab Results
01/13/25
14:04
RBC 4.35 L 10^6/uL
(4.70-6.10)
MCH 31.3 H pg
(27.0-31.0)
Absolute Monos (auto) 0.8 H 10^3/uL
(0.1-0.6)
Absolute Eos (auto) 0.9 H 10^3/uL
(0-0.7)
Monocytes % 9.9 H %
(1.7-9.3)
Eosinophils % 10.7 H %
(0-6)
Glucose 119 H mg/dl
(70-99)
01/13/25 14:04
01/13/25 14:04
Vital Signs
Initial and Last Documented VS:
Initial Vital Signs
Temp Pulse Resp BP Pulse Ox
98.4 F 108 16 158/117 92
01/13/25 13:49 01/13/25 13:49 01/13/25 13:49 01/13/25 13:49 01/13/25 13:49
Last Documented Vital Signs
Temp Pulse Resp BP Pulse Ox
98.4 F 95 20 152/93 99
01/13/25 13:49 01/13/25 18:45 01/13/25 18:45 01/13/25 18:14 01/13/25 17:15
MDM/Problems Addressed
Differential Diagnosis Includes:
Dizziness. Patient describes this as spinning worse with position change. Attempted Donovan-Hallpike maneuver which seems to be making his dizziness worse on the left but he was coughing when laying flat. He is mildly edematous no rales on exam chest
x-ray shows stable scarring bilaterally
Skin is warm no rash. Neurologic exam: Alert and oriented finger-nose [id number] intact. No cerebellar signs. No drift on exam.
Patient is slightly wheezy I suspect component of asthma causing his shortness of breath. DuoNeb ordered. Exam most consistent with positional vertigo however given the elevated blood pressure will order CT of the head
*Critical Care Note
Total Time (30-74mins, 75-104mins- exclusive of procedures): Not Applicable
Update Note
Update Note:
CT head negative. Chest x-ray within normal limits. Blood pressure has decreased since his stay. He is overall nontoxic with a normal neurologic exam. I suspect vertigo as a source of his dizziness. Recommended antihistamines. Stable for
discharge
ED Attending Note
-
Portions of this chart may have been created with voice recognition software.� Occasional wrong word or��sound alike� substitutions may have occurred due to the inherent limitations of voice recognition software.
Discharge Plan
Departure
Patient Disposition: Home (Routine Discharge)
Date of Disposition: 01/13/25
Time of Disposition: 19:10
Patient with high blood pressure during this ER visit?: No
Discharge Problem:
Vertigo
Instructions: Vertigo (a type of dizziness)
Prescriptions:
No Action
omeprazole 20 MG capsule,delayed release(DR/EC)
20 mg PO DAILY
montelukast 10 MG tablet
10 mg PO HS
repaglinide 2 mg Tablet
2 mg PO DAILY
Patient Comments:
03/07/24: it is prescribed to be taken 15-30 minutes before meals three times a day, but patient states he only takes one in the morning.
atorvastatin 20 mg Tablet
20 mg PO DAILY
ipratropium-albuterol 0.5 mg-3 mg(2.5 mg base)/3 mL Solution For Nebulization
3 ml INHALATION R BID
aspirin 81 mg Tablet,Delayed Release (Dr/Ec)
81 mg PO DAILY
acetaminophen [Tylenol Extra Strength] 500 mg Tablet
500 mg PO HS
metformin 1,000 mg tablet
1,000 mg PO BIDWMEAL
naproxen sodium [Aleve] 220 mg Tablet
220 mg PO HS
budesonide 0.5 mg/2 mL Suspension For Nebulization
0.5 mg INHALATION R BID
albuterol sulfate 90 mcg/actuation Hfa Aerosol Inhaler
2 puff INHALATION R Q6HPRN PRN (Reason: sob)
losartan 100 mg Tablet
100 mg PO DAILY
insulin glargine [Lantus Solostar U-100 Insulin] 100 unit/mL (3 mL) Insulin Pen
10 unit SC HS
melatonin 5 mg Tablet
5 mg PO HS
Zyrtec 10 mg Capsule
10 mg PO DAILY
Centrum Adult 50 Plus 80 mcg Tablet,Chewable
1 tab PO DAILY
benzonatate 100 mg Capsule
200 mg PO TIDPRN PRN (Reason: cough) Qty: 40 0RF
cefdinir 300 mg capsule
300 mg PO BID Qty: 8 0RF
codeine-guaifenesin 10-100 mg/5 mL Liquid
5 ml PO BIDPRN PRN (Reason: SEVERE COUGH) Qty: 50 0RF
prednisone 10 mg Tablet
See Rx Instructions .ROUTE .COMPLEX Qty: 36 0RF
Rx Instructions:
Take By Mouth:
40 mg daily x3 days, 30 mg daily x4 days,
20 mg daily x4 days, 10 mg daily x4 days.
Referrals:
Lesley Wilburn CRNP [Family Provider] -
Activity Restrictions/Additional Instructions:
Continue with antihistamines. Return here if worse otherwise follow-up with your doctor
Interventions
Interventions:
*Risk Screen - Suicide Last Done: 01/13/25 13:49
*General Assessment Last Done: 01/13/25 13:49
*Neglect/Abuse Screening Last Done: 01/13/25 13:49
*ED- Fall Risk Assessment Last Done: 01/13/25 13:49
*ED COVID-19 Vaccine History Last Done: 01/13/25 13:49
ED- Cardiac Assessment Last Done: 01/13/25 17:09
ED- Neurological Assessment Last Done: 01/13/25 17:09
ED- Pulmonary Assessment Last Done: 01/13/25 17:09
Discharge Date and Time
Print Language: PARAGUAYAN
[2025-01-13 17:05] VITALS: BP 176/102
[2025-01-13] MEDS: DUONEB 3 ML INH (17:05)
[2025-01-13 18:00] VITALS: BP 160/92
[2025-01-13 18:14] VITALS: BP 152/93
== END 2025-01-13 19:16 | disposition home or self-care (01) ==
LOC: EMR 13:42
PROVIDERS: Physician Assistant; EMERGENCY PHYSICIAN Student in an Organized Health Care Education/Training Program; FAMILY PHYSICIAN Nurse Practitioner Primary Care
DX: R42 Dizziness and giddiness (principal); I10 Essential (primary) hypertension; J45.909 Unspecified asthma, uncomplicated; F17.200 Nicotine dependence, unspecified, uncomplicated; J44.89 Other specified chronic obstructive pulmonary disease; E11.9 Type 2 diabetes mellitus without complications; Z86.19 Personal history of other infectious and parasitic diseases
CPT/HCPCS: 94640; 99284; 70450; 71046; 80053; 83880; 84484; 85025; 93005

== ENCOUNTER → 2025-04-06 07:15 | Outpatient (REF) | payer MEDICARE, OTHER, SELFPAY ==
[2025-04-06 10:45] LABS: ALT (SGPT) 22 U/L (0-50); AST (SGOT) 24 U/L (17-59); Albumin 4.3 g/dl (3.5-5.0); Alkaline Phosphatase 59 U/L (38-126); Blood Urea Nitrogen 12 mg/dl (9-20); Calcium 9.5 mg/dl (8.4-10.2); Carbon Dioxide 34 mmol/L (22-30); Chloride 93 mmol/L (98-107); Glucose 150 mg/dl (70-99); HDL Cholesterol 35 mg/dl; LDL Cholesterol, Calculated 65 mg/dl; Potassium 5.0 mmol/L (3.5-5.1); Sodium 133 mmol/L (135-145); Total Protein 7.0 g/dl (6.3-8.2); Very Low Density Lipoprotein 28 mg/dl (0-30); eGFR > 60.00
[2025-04-06 11:22] LABS: Glycohemoglobin (HgbA1c) 7.8 % (4.0-5.6)
== END ==
LOC: HWLAB 07:15
PROVIDERS: ATTENDING PHYSICIAN Nurse Practitioner Primary Care
DX: E11.29 Type 2 diabetes mellitus with other diabetic kidney complication (principal); I25.10 Atherosclerotic heart disease of native coronary artery without angina pectoris; E78.2 Mixed hyperlipidemia
CPT/HCPCS: 36415; 80053; 80061; 83036

== ENCOUNTER → 2025-05-06 08:56 | Outpatient (REF) | payer MEDICARE, OTHER, SELFPAY | LOC: HWRAD 08:56 | PROVIDERS: ATTENDING PHYSICIAN Internal Medicine Critical Care Medicine; FAMILY PHYSICIAN Nurse Practitioner Primary Care | DX: Z87.891 Personal history of nicotine dependence (principal) | CPT/HCPCS: 71271 ==

== ENCOUNTER → 2025-05-18 09:06 | Outpatient (REF) | payer MEDICARE, OTHER, SELFPAY ==
--- NOTE | 2025-04-22 13:35 | PN.DIAED02 ---
Referral
DSME Class Series Code: [id number]
Referred For: Diabetes Self-Management Training, Medical Nutrition Therapy, Self-Blood Glucose Monitoring, Long-Term Complication Instruction, Accute Complication Instruction, Continuous Glucose Monitoring, Medication management, Insulin
Instruction, Care Coordination, Disease Management
PHI Release Authorization Form Signed: Yes
Demographic
Patient's primary language-: Sami
Education: High school/GED
Occupation: Retired
- Social
Primary Support Person: Self & spouse
Primary Care Takers: Self & spouse
Living Arrangements: Self & spouse
- Learning Methods
Preferred Method: Hands-on demonstration
Barriers to Learning: None
Glycemic Control
- Blood Glucose Monitoring Assessment
Blood glucose monitoring at home: Yes
Monitor Brands: Freestyle (FreeStyle Julio 3+ CGM)
Frequency: >4x per day
Time: fasting, before breakfast, after breakfast, before lunch, after lunch, before dinner, after dinner, bedtime, 12 AM, 3 AM
- Hypoglycemia Assessment
Patient carries glucose source: No
Patient experiences hypoglycemia: Yes
Frequency: rarely
Treatment: juice
Time: Other
- Blood Glucose Monitoring Results
Source: lab (150 mg/dL, HbA1c 7.8)
- Hemoglobin A1c
Date: 03/11/25
A1C Percentage (%): 7.8
Medical History of Diabetes
Family Diabetes History: Mother, Sibling
Previous Diabetes Education: No
Previous visit with Dietitian: No
Complications/Comorbidity/Specialist: Gastrointestinal disease (Omeprazole 20 mg QD), Heart Disease (Aspirin 81 mg QD), Hypertension (Losartan Potassium-HCTZ 100-12.5 mg QD), Hyperlipidemia (Atorvastatin 20 mg QD, Zetia 10 mg QD), Metabolic (DM2:
Lanuts 18 units, Metformin 1000 mg BID, Ozempic 0.5 mg once a week, Repaglinide 2 mg TID), Pulmonary disease (COPD: Albuterol 2 puffs PRN q6h, Ipratropium-Albuterol 2.5 mg/3mL 1 vial inhalation BID x 90 days, Budesonide 2ml BID, Zyrtec 10 mg QD )
Measures
- Anthropometrics
Height: 5 ft 11 in
Actual Weight: 213 lb 3.2 oz
- Blood Pressure / Pulse
Blood pressure: 133/92
Pulse: 101
- Diabetes Management
Medical Management for Diabetes: Complete physical exam (04/16/2025), Dilated eye exam (09/2024), Flu Vaccination (06/02/2023), Pneumonia vaccination (06/18/2020), Other (Covid Vax: 11/16/20, 12/07/20, 08/01/21, 11/20/21)
Self-Care
- Tobacco Usage
Do you now, or have you ever smoked?: Quit more than 1 year ago (03/2024)
- Alcohol & Drugs Usage
Drinks Alcohol: No
- Meals & Dining
Meals & Dining: Patient skips meals: Yes, Food Intolerance / Allergy: No, Cultural / Yarsani Dietary Needs: No
Primary Food Meat Passer: Self
Primary Crew Scheduler: Self
Dining Out Frequency: 1-3x per week
- Physical Activity
Physical Limitation: Yes (COPD prohibits exercise)
Patient participates in physical Activity: No
- Self Foot-Care
Foot Problems: Neuropathy
Performs Self Foot-Exam: Yes
Frequency: Daily
- Patient-Self Assessment
Diabetes Knowledge: Fair
Feelings About Diabetes: Acceptance
General Health: Fair
Importance of Health: Somewhat
Stress Level: High
Diabetes Interferes With:: Nothing
Depression Survey Score: 0
- Diabetes Identification
Carries Diabetes Identification: No
Diabetes Identification Information Provided: Yes
Care Plan
- Education Needs
Patient Education Needs: Diabetes disease process, Chronic complications, Acute complications, Medication, Monitoring, Physical activity, Psychosocial Adjustment, Nutritional management, Goal setting & problem solving
Recommended Diabetes Training Program based on assessment: Outpatient Diabetes Education Program
- Plan of Care
Plan of Care:
04/22/2025 DSME INITIAL CONSULTATION
Met with participant today for registration and initiation of Diabetes Self-management. Pt was recommended by his PCP due to HbA1c of 7.5% on
04/06/2025. His HbA1c has been between 7.4% - 8.5% in the past year.
He is on 18 units of Lantus at night, and per MD notes he is to increase 2 units every 3 days to achieve FBG < 130 in AM. I asked if he was titrating his dose as his MD requested, and he said that his BS has not been over 130 mg/dL then states that
it has been between 130 - 180 mg/dL. He uses the FreeStyle Julio 3+ but it is currently out of stock, is not checking glucose with fingerstick. I asked him the check his FBG for the next 3-4 days and call me to review, he verbalized consent.
States his MD is giving him samples of Ozempic, his current dose is 0.5 mg QW, is working with the [facility] prescription assistance.
We reviewed complications of diabetes, fasting and 2 hour post prandial glucose goals, signs and symptoms of hyperglycemia, signs and symptoms of hypoglycemia, and hypoglycemia protocol. We discussed exercise recommendations of at least 30 minutes
per day to help lower glucose levels, he used to walk 2 miles twice a day but states recently he cannot walk due to COPD exacerbation. He thinks it may be related to the weather. He plans to attempt walking again when the weather improves.
We reviewed proper nutrition, he admits to poor diet with many sweets and other carbohydrates. I provided education on signs and symptoms of hyperglycemia, hyperglycemia, and hypoglycemia protocol. He admits to poor sleep and high stress, we also
discussed how this can increase glucose levels.
I reviewed and provided diabetes management booklet, insurance billing code and advised he contact his health plan to discuss coverage and cost.
He has phone # for office if additional needs arise prior to class.
--- NOTE | 2025-04-22 14:07 | PN.DIAED04 ---
Education Record
- Education Record
Class Attended: Other (DSME INITIAL CONSUL)
[facility] Class Series Code: [id number]
Instructor: Nurse Practitioner (JENNIFER Benítez)
Pre-Program Knowledge: Needs review / Assistance
Pre-Test Score (%): 78
Goals
- Goal 1
Being Active: Other (WALK 2 MILES/DAY)
Goals To Be Evaluated: Other
- Goal 2
Healthy Eating: Make better food choices
Goals To Be Evaluated: Make better food choices
- Goal 3
Monitoring: Follow monitoring schedule
Goals To Be Evaluated: Follow monitoring times
--- NOTE | 2025-04-27 12:15 | PN.DE ---
Addendum entered by Martina Nicolas RN 04/27/25 13:16:
04/27/2025 I contacted Mr. Camara again, reviewed Dr. Lesley Wiblurn's notes from 04/16/2025 which state he is taking 18 units of Lantus and to increase by 2 units every 3 days until he achieves a fasting glucose of 70-110. He states he is aware, and
that this titration schedule starts this week.
Original Note:
Diabetes Education
- -
04/27/2025 INITIAL DIABETES CONSULTATION FOLLOW UP
Mr. Camara called with fasting glucose values. 04/23/25 - 116, 04/24/25 - 137, 04/25/25 - 171, 04/26/25 - 158, 04/27/25 - 130.
He states that the nights prior to 04/25 and 04/26 he had 2 pieces of sugar coated candies. He also has been drinking sweet tea with dinner because he feels that drinking 24-36 oz of water will deplete his electrolytes. I provided education that
sugar is not an electrolyte and he is not excessively drinking water. Discussed sugar free electrolyte drinks if he is interested in another drink in addition to water. He states he cut back on water but drinks 5 ounces water and 5 ounces of milk
just before bed with meals. He is also up 5x a night to urinate. I provided education to stop beverages 2 hours before bedtime to help decrease night time urination. He states he will continue this because of his medications. He also drinks
cranberry juice, I provided education that this is high in added sugar and not recommended unless he is hypoglycemic. He verbalized understanding, will outreach with any further questions or concerns.
--- NOTE | 2025-05-19 12:27 | PN.DIAED14 ---
This is to notify you that your patient with diabetes, THAO COLLINS ( 1955), has enrolled in our diabetes self-management classes that are being held at [facility].
These classes will include an introduction to diabetes, diet, medication, exercise and prevention of complications. At the end of our class series, you will receive a report of your patient's participation and progress for your records.
Please contact me at the Diabetes Center, , if there is any particular information regarding your patient that might be helpful to me.
Sincerely,
Miguel RODRIGUEZ-LA, [facility]
--- NOTE | 2025-05-19 12:27 | PN.DIAED04 ---
Education Record
- Education Record
Class Attended: Class 1
DSME Class Series Code: [id number]
Instructor: Nurse Practitioner (JENNIFER Benítez)
Class Curriculum:
Outpatient Diabetes Education Program:
Class 1 (120 minutes)
Describe the diabetes disease process and treatment options
Diabetes management
Develop personal strategies to promote health and behavior change
Integrate psychosocial adjustment for daily living
Monitor blood glucose and other parameters. Interpret and use the results for self-management decision making
Prevent, detect, and treat acute complications
Class Length (mins): 120
Post-Class 1 Test Score (%): 100
== END ==
LOC: DES 09:06
PROVIDERS: ATTENDING PHYSICIAN Internal Medicine Geriatric Medicine
DX: E11.29 Type 2 diabetes mellitus with other diabetic kidney complication (principal)
CPT/HCPCS: 99078

== ENCOUNTER → 2025-05-25 09:27 | Outpatient (REF) | payer MEDICARE, OTHER, SELFPAY ==
--- NOTE | 2025-05-26 10:20 | PN.DIAED04 ---
Education Record
- Education Record
Class Attended: Class 2
DSME Class Series Code: [id number]
Instructor: Registered Dietitian (Lore Haskins, RD, LDN, CDE)
Class Curriculum:
Outpatient Diabetes Education Program:
Class 2 (120 minutes)
Incorporate nutritional management into lifestyle
Understanding nutritional value
Understanding carbohydrate counting
Class Length (mins): 120
== END ==
LOC: DES 09:27
PROVIDERS: ATTENDING PHYSICIAN Internal Medicine Geriatric Medicine
DX: E11.29 Type 2 diabetes mellitus with other diabetic kidney complication (principal)
CPT/HCPCS: 99078

== ENCOUNTER → 2025-06-01 09:34 | Outpatient (REF) | payer MEDICARE, OTHER, SELFPAY ==
--- NOTE | 2025-06-03 11:29 | PN.DIAED04 ---
Education Record
- Education Record
Class Attended: Class 3
DSME Class Series Code: [id number]
Instructor: Registered Dietitian (Lore Haskins, RD, LDN, CDE)
Class Curriculum:
Outpatient Diabetes Education Program:
Class 3 (120 minutes)
Incorporate nutritional management into lifestyle
Class Length (mins): 120
Post-Class 2 & 3 Test Score (%): 75
== END ==
LOC: DES 09:34
PROVIDERS: ATTENDING PHYSICIAN Internal Medicine Geriatric Medicine
DX: E11.29 Type 2 diabetes mellitus with other diabetic kidney complication (principal)
CPT/HCPCS: 99078

== ENCOUNTER → 2025-06-08 09:51 | Outpatient (REF) | payer MEDICARE, OTHER, SELFPAY ==
--- NOTE | 2025-06-09 10:40 | PN.DIAED04 ---
Education Record
- Education Record
Class Attended: Class 4
DSME Class Series Code: [id number]
Instructor: Nurse Practitioner (JENNIFER Benítez)
Class Curriculum:
Outpatient Diabetes Education Program:
Class 4 (120 minutes)
Develop personal strategies to promote health and behavior change
Incorporate physical activity into lifestyle
Utilize medications safety for maximum therapeutic effectiveness
Understand different medication/insulin mechanism of action
Preparing for travel
Class Length (mins): 120
Post-Class 4 Test Score (%): 73
== END ==
LOC: DES 09:51
PROVIDERS: ATTENDING PHYSICIAN Internal Medicine Geriatric Medicine
DX: E11.29 Type 2 diabetes mellitus with other diabetic kidney complication (principal)
CPT/HCPCS: 99078

== ENCOUNTER → 2025-06-15 09:06 | Outpatient (REF) | payer MEDICARE, OTHER, SELFPAY ==
--- NOTE | 2025-06-17 09:01 | PN.DIAED04 ---
Education Record
- Education Record
Class Attended: Class 5
DSME Class Series Code: [id number]
Instructor: Registered Nurse (Martina Nicolas RN)
Class Curriculum:
Outpatient Diabetes Education Program:
Class 5 (120 minutes)
Prevent, detect, and treat acute complications
Prevent, detect, and treat chronic complications through risk reduction
Develop personal strategies to address psychosocial issues and concerns
Development of diabetes self-management support plan
Letter to physician with DSMS plan attached sent
Class Length (mins): 120
Post-Program Knowledge: Demonstrates competency
Post-Test Score (%): 83
Post-Program Assessment
- Post-Program Assessment
Actual Weight: 214 lb 9.6 oz
Blood pressure: 149/92
Post-Program Depression Survey Score: 11
Reviewing Previous Goals?: Yes
Pre-Program Depression Survey Score: 0
- Goals 1 Evaluation
Goals To Be Evaluated: Walk 2 miles a day
- Goals 2 Evaluation
Goals To Be Evaluated: Make better food choices
- Goals 3 Evaluation
Goals To Be Evaluated: Follow monitoring times
--- NOTE | 2025-06-17 09:02 | PN.DIAED16 ---
This is to notify you that your patient with diabetes, THAO COLLINS ( 1955), has attended the entire series of Diabetes Self-Management Education Classes.
Class 1 (120 minutes): Diabetes Overview - monitoring, stress/psychosocial adjustment, support, goal setting
Class 2 (120 minutes): Meal Planning - serving sizes, menu plans
Class 3 (120 minutes): Introduction to Carbohydrate Counting, Analyzing Food Labels
Class 4 (120 minutes): Medication, Exercise and Activity
Class 5 (120 minutes): Sick Day Management, Strategies to Reduce Complications, Problem Solving, Resources
The following behavioral goals were identified:
Walk 2 miles a day
Make better food choices
Follow monitoring times
A follow-up call will be made within three to six months to evaluate attainment of these goals and to check post-program Hemoglobin A1c and overall progress. All class participants are encouraged to contact me if I can be any further assistance in
learning how to manage their diabetes.
Sincerely,
Miguel RODRIGUEZ-, [facility]
== END ==
LOC: DES 09:06
PROVIDERS: ATTENDING PHYSICIAN Internal Medicine Geriatric Medicine
DX: E11.29 Type 2 diabetes mellitus with other diabetic kidney complication (principal)
CPT/HCPCS: 99078

== ENCOUNTER → 2025-07-06 07:41 | Outpatient (REF) | payer MEDICARE, OTHER, SELFPAY ==
[2025-07-06 09:42] LABS: Hematocrit 37.5 % (39.0-52.0); Hemoglobin 12.9 g/dL (13.0-18.0); Mean Corp Hgb Conc. 34.4 g/dL (33.0-37.0); Mean Corpuscular Volume 92.1 fL (80.0-94.0); Nucleated Red Blood Cells % 0 % (-); Platelet Count 275 10^3/uL (130-400); Red Cell Dist. Width 12.3 % (11.5-14.5)
[2025-07-06 10:02] LABS: ALT (SGPT) 22 U/L (0-50); AST (SGOT) 26 U/L (17-59); Albumin 3.9 g/dl (3.5-5.0); Alkaline Phosphatase 53 U/L (38-126); Blood Urea Nitrogen 14 mg/dl (9-20); Calcium 8.9 mg/dl (8.4-10.2); Carbon Dioxide 30 mmol/L (22-30); Chloride 98 mmol/L (98-107); Glucose 143 mg/dl (70-99); Iron 101 ug/dl (49-181); Magnesium 1.8 mg/dl (1.6-2.3); Potassium 4.1 mmol/L (3.5-5.1); Sodium 132 mmol/L (135-145); Total Protein 6.7 g/dl (6.3-8.2); eGFR > 60.00
[2025-07-06 10:12] LABS: Total Iron Binding Capacity 351 ug/dl (261-462)
[2025-07-06 10:34] LABS: PSA, Total - Screen 0.54 ng/ml (0.0-4.0)
[2025-07-06 10:38] LABS: Ferritin 26.7 ng/ml (17.9-464.0)
[2025-07-06 10:44] LABS: Microalbumin, Random Urine 8.6 mg/dl (0.6-1.7)
[2025-07-06 10:53] LABS: Vitamin B12 467 pg/ml (239-931)
[2025-07-06 11:10] LABS: Glycohemoglobin (HgbA1c) 7.8 % (4.0-5.9)
[2025-07-06 12:33] LABS: Microalb - Urine Creatinine 61.410 mg/dl
== END ==
LOC: HWLAB 07:41
PROVIDERS: ATTENDING PHYSICIAN Nurse Practitioner Primary Care
DX: E11.29 Type 2 diabetes mellitus with other diabetic kidney complication (principal); N18.2 Chronic kidney disease, stage 2 (mild); Z12.5 Encounter for screening for malignant neoplasm of prostate; E11.42 Type 2 diabetes mellitus with diabetic polyneuropathy; Z79.899 Other long term (current) drug therapy
CPT/HCPCS: 36415; 80053; 82043; 82570; 82607; 82728; 83036; 83540; 83550; 83735; 83880; 84443; 85025; G0103

== ENCOUNTER → 2025-07-29 13:30 | Outpatient (REF) | payer MEDICARE, OTHER, SELFPAY ==
[2025-07-29 15:42] LABS: Blood Urea Nitrogen 16 mg/dl (9-20); Calcium 9.5 mg/dl (8.4-10.2); Carbon Dioxide 32 mmol/L (22-30); Chloride 90 mmol/L (98-107); Glucose 200 mg/dl (70-99); Potassium 4.2 mmol/L (3.5-5.1); Sodium 127 mmol/L (135-145); eGFR > 60.00
== END ==
LOC: HWLAB 13:30
PROVIDERS: ATTENDING PHYSICIAN Nurse Practitioner Primary Care
DX: E87.1 Hypo-osmolality and hyponatremia (principal)
CPT/HCPCS: 80048; 83930; 83935; 84300

== ENCOUNTER → 2025-08-10 09:29 | Outpatient (REF) | payer MEDICARE, OTHER, SELFPAY ==
[2025-08-10 12:11] LABS: Cortisol, Random 9.8 ug/dl
[2025-08-10 12:12] LABS: Blood Urea Nitrogen 15 mg/dl (9-20); Calcium 9.6 mg/dl (8.4-10.2); Carbon Dioxide 30 mmol/L (22-30); Chloride 92 mmol/L (98-107); Glucose 129 mg/dl (70-99); Potassium 4.7 mmol/L (3.5-5.1); Sodium 130 mmol/L (135-145); eGFR > 60.00
== END ==
LOC: REG 09:29
PROVIDERS: ATTENDING PHYSICIAN Nurse Practitioner Primary Care; FAMILY PHYSICIAN Internal Medicine Geriatric Medicine
DX: E87.1 Hypo-osmolality and hyponatremia (principal)
CPT/HCPCS: 36415; 80048; 82533